=== PATIENT | female | born 1995 | race Caucasian/White ===

== ENCOUNTER 2017-03-24 07:46 | Inpatient (IN) | payer BC, OTHER ==
--- NOTE | 2017-03-24 15:12 | PCM.LDHP ---
L&D History of Present Illness - General Date of Service: 03/24/17 Admit Problem/Dx: Admission Diagnosis/Problem Admission Diagnosis/Problem Source of Information: Patient History Limitations: Reports: No Limitations - History of Present Illness Introduction:: 21 y/o KATEY 04/03/2017 EGDonte 38w4d presented to clinic with c/o contractions , some RUQ pain and feeling dizzy. BP elevated in clinic without proteinuria on UA. BP's 134/98, 133/114, 151/103. GBS negative. O negative, Antibody negative on 08/19/16. H/H 13.1/36.9, Pap negative 01/02/16. Rubella immune. RPR NR, urine culture mixed jacqueline, HBsAg Neg, HIV neg,Chlamydia positive and treated and GC probe negative. Test of cure GC/CT negative 09/18/16TSH WNL. On 01/08/17 H/H 11.9/ 34.2 and platelets [id number]. OBGS 113. GBS negative. Cervix 4-5 cm, 90%, soft, midposition, vertex-1 station. PIH labs ordered to be collected in [facility] in [place] Timing/Duration: Reports: hour(s): Location, : Reports: Abdomen, Lower back Quality: Reports: Dull, Pressure Improves with: Reports: None Worsens with: Reports: None Associated Symptoms: Reports: N Past Medical History : 1 Para: 0 (0000) LMP (Approximate): Psychiatric History: Reports: Anxiety (H/O), Depression (H/O) Social & Family History - Tobacco Use Tobacco Use Within Last Twelve Months: No Used Tobacco, but Quit: No Smoking Cessation Information Provided To Patient: No Second Hand Smoke Exposure: No Second Hand Smoke Education Provided: No - Tobacco Core Measures Tobacco Use/Smoking Within Last 30 Days: No Smokeless Tobacco Use in Last 30 Days: No Smokeless Tobacco Use History: None - Alcohol Use Alcohol Use History: Yes Alcohol Use in Last Twelve Months: Yes Alcohol Use Comment: none during - Recreational Drug Use Recreational Drug Use: No Drug Use in Last 12 Months: No H&P Review of Systems - Review of Systems: Review Of Systems: See Below General: Reports: No Symptoms HEENT: Reports: No Symptoms Pulmonary: Reports: No Symptoms Cardiovascular: Reports: No Symptoms 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: Reports: No Symptoms Genitourinary: Reports: No Symptoms Musculoskeletal: Reports: No Symptoms Skin: Reports: No Symptoms Psychiatric: Reports: No Symptoms Neurological: Reports: No Symptoms Hematologic/Lymphatic: Reports: No Symptoms Immunologic: Reports: No Symptoms L&D Exam - Exam Exam: See Below - OB Specific Fundal Height In cm: 38 Contraction Duration (sec): 60 Contraction Frequency (min): 5 Contraction Intensity: Mild to Moderate Movement: Active Heart Tones: Present Heart Tones per Min: 137 Heart Rate (FHR) Variability: Moderate (6-25 bmp) Presentation: Vertex - Carter Score Carter Score Cervix Position: Midposition Carter Score Consistency: Soft Carter Score Effacement: >80% Carter Score Dilation: > 5 cm Carter Score 's Station: -1 ,0 Carter Score Total: 11 - Exam General: Alert, Oriented HEENT: Conjunctiva Clear, Mucosa Moist & Baggs, Nares Patent, TMs Clear, PERRLA Neck: Supple, Trachea Midline Lungs: Clear to Auscultation, Normal Respiratory Effort Cardiovascular: Regular Rate, Regular Rhythm GI/Abdominal Exam: Normal Bowel Sounds, Soft, Non-Tender, No Organomegaly, No Distention, No Abnormal Bruit, No Mass, Pelvis Stable Rectal Exam: Normal Exam Genitourinary: Normal external exam, Normal bimanual exam, Normal speculum exam Extremities: Normal Inspection, Normal Range of Motion, Non-Tender, No Pedal Edema, Normal Capillary Refill Skin: Warm, Dry, Intact Neurological: Reflexes Equal Bilateral DTR: 2+: Patella (L) (no clonus), Patella (R) (no clonus) Psychiatric: Alert, Normal Affect, Normal Mood - Patient Data Lab Results Last 24 hrs: Laboratory Results - last 24 hr 03/24/17 Range/Units 14:07 Urine Color Yellow (Yellow) Urine Appearance Clear (Clear) Urine pH 6.0 (5.0-8.0) Ur Specific [place] 1.010 (1.005-1.030) Urine Protein Negative (Negative) Urine Glucose (UA) Negative (Negative) Urine Ketones Negative (Negative) Urine Occult Blood Negative (Negative) Urine Nitrite Negative (Negative) Urine Bilirubin Negative (Negative) Urine Urobilinogen 0.2 (0.2-1.0) Ur Leukocyte Esterase 1+ H (Negative) - Problem List (1) 38 weeks gestation of SNOMED Code(s): 14565562 ICD Code: Z3A.38 - 38 WEEKS GESTATION OF Status: Acute Current Visit: Yes (2) Gestational hypertension without significant proteinuria in third trimester SNOMED Code(s): 100379341 ICD Code: O13.3 - GESTATIONAL HTN W/O SIGNIFICANT PROTEINURIA, THIRD TRIMESTER Status: Acute Current Visit: Yes Problem List Initiated/Reviewed/Updated: No Assessment/Plan Comment:: Labor and delivery
[2017-03-24] MEDS ORDERED: Sodium Chloride 0.9% 10 ML Syringe FLUSH PRN (15:26)
[2017-03-24] MEDS ORDERED: Lactated Ringers 1,000 ML IV SCH (15:30)
[2017-03-24] MEDS ORDERED: ePHEDrine 50 MG/ML SDV IVPUSH PRN (16:36)
[2017-03-24] MEDS ORDERED: diphenhydrAMINE 50 MG/ML SDV IVPUSH PRN (16:36)
[2017-03-24] MEDS ORDERED: fentaNYL 100 MCG/2 ML SDV EPIDUR PRN (16:36)
--- NOTE | 2017-03-24 16:44 | PCM.SN ---
- Free Text/Narrative Note: Cervix 5, 100%, anterior, soft, Vertex0/-1 amniotomy performed 1639 clear fluid. Cat I FHR.
[2017-03-24] MEDS ORDERED: Bupivacaine/fentaNYL/NS 100 ML Bag EPIDUR SCH (16:45)
[2017-03-24] MEDS: Lactated Ringers 1,000 ML IV SCH ×2 (17:15→17:49)
[2017-03-24] MEDS ORDERED: Oxytocin/Lactated Ringers 10 UNIT/1,000 ML BAG IV SCH (17:45)
--- NOTE | 2017-03-24 18:26 | PCM.PREANE ---
Preanesthetic Assessment - Anesthesia/Transfusion/Family Hx Anesthesia History: No Prior Anesthesia Family History of Anesthesia Reaction: No Transfusion History: No Prior Transfusion(s) - Review of Systems General: No Symptoms Pulmonary: No Symptoms Cardiovascular: No Symptoms 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: No Symptoms Neurological: No Symptoms Other: Reports: None - Physical Assessment Pulse: 81 O2 Sat by Pulse Oximetry: 97 Respiratory Rate: 16 Blood Pressure: 137/92 Temperature: 36.6 C Vital Signs: Last Vital Signs Temp 36.6 C 03/24/17 15:31 Pulse 81 03/24/17 15:31 Resp 16 03/24/17 15:31 BP 137/93 H 03/24/17 15:31 Pulse Ox Height: 1.68 m Weight: 75.523 kg ASA Class: 2 Mental Status: Alert & Oriented x3 Airway Class: Mallampati = 1 Dentition: Reports: Normal Dentition Thyro-Mental Finger Breadths: 3 Mouth Opening Finger Breadths: 3 ROM/Head Extension: Full Lungs: Clear to Auscultation, Normal Respiratory Effort Cardiovascular: Regular Rate, Regular Rhythm, No Murmurs - Lab Values: Laboratory Last Values WBC 6.24 K/mm3 (3.98-10.04) 03/24/17 16:15 RBC 3.98 M/mm3 (3.98-5.22) 03/24/17 16:15 Hgb 13.3 gm/L (11.2-15.7) 03/24/17 16:15 Hct 37.5 % (34.1-44.9) 03/24/17 16:15 MCV 94.2 fl (79.4-94.8) 03/24/17 16:15 MCH 33.4 pg (25.6-32.2) H 03/24/17 16:15 MCHC 35.5 g/dl (32.2-35.5) 03/24/17 16:15 RDW Std Deviation 41.8 fL (36.4-46.3) 03/24/17 16:15 Plt Count 219 K/mm3 (182-369) 03/24/17 16:15 MPV 12.2 fl (9.4-12.3) 03/24/17 16:15 Neut % (Auto) 67.9 % (34.0-71.1) 03/24/17 16:15 Lymph % (Auto) 22.0 % (19.3-51.7) 03/24/17 16:15 [place] % (Auto) 9.1 % (4.7-12.5) 03/24/17 16:15 Eos % (Auto) 0.5 (0.7-5.8) L 03/24/17 16:15 Baso % (Auto) 0.2 % (0.1-1.2) 03/24/17 16:15 Neut # (Auto) 4.24 K/mm3 (1.56-6.13) 03/24/17 16:15 Lymph # (Auto) 1.37 K/mm3 (1.18-3.74) 03/24/17 16:15 [place] # (Auto) 0.57 K/mm3 (0.24-0.36) H 03/24/17 16:15 Eos # (Auto) 0.03 K/mm3 (0.04-0.36) L 03/24/17 16:15 Baso # (Auto) 0.01 K/mm3 (0.01-0.08) 03/24/17 16:15 PT 9.2 SECONDS (8.0-13.0) 03/24/17 16:15 INR 0.85 03/24/17 16:15 APTT 34 SECONDS (22-36) 03/24/17 16:15 Fibrinogen 478.1 mg/dL (200-400) H 03/24/17 16:15 Sodium 138 mEq/L (136-145) 03/24/17 16:15 Potassium 3.5 mEq/L (3.5-5.1) 03/24/17 16:15 Chloride 104 mEq/L (98-107) 03/24/17 16:15 Carbon Dioxide 19 mEq/L (21-32) L 03/24/17 16:15 Anion Gap 18.5 (5-15) H 03/24/17 16:15 BUN 10 mg/dL (7-18) 03/24/17 16:15 Creatinine 0.8 mg/dL (0.55-1.02) 03/24/17 16:15 Est Cr Clr Drug Dosing 105.01 mL/min 03/24/17 16:15 Estimated GFR (MDRD) > 60 mL/min (>60) 03/24/17 16:15 BUN/Creatinine Ratio 12.5 (14-18) L 03/24/17 16:15 Glucose 98 mg/dL (74-106) 03/24/17 16:15 Uric Acid 8.1 mg/dL (2.6-6.0) H 03/24/17 16:15 Calcium 9.5 mg/dL (8.5-10.1) 03/24/17 16:15 Total Bilirubin 0.2 mg/dL (0.2-1.0) 03/24/17 16:15 AST 41 U/L (15-37) H 03/24/17 16:15 ALT 27 U/L (14-59) 03/24/17 16:15 Alkaline Phosphatase 159 U/L (46-116) H 03/24/17 16:15 Total Protein 7.0 g/dl (6.4-8.2) 03/24/17 16:15 Albumin 2.6 g/dl (3.4-5.0) L 03/24/17 16:15 Globulin 4.4 gm/dL 03/24/17 16:15 Albumin/Globulin Ratio 0.6 (1-2) L 03/24/17 16:15 Urine Color Yellow (Yellow) 03/24/17 14:07 Urine Appearance Clear (Clear) 03/24/17 14:07 Urine pH 6.0 (5.0-8.0) 03/24/17 14:07 Ur Specific [place] 1.010 (1.005-1.030) 03/24/17 14:07 Urine Protein Negative (Negative) 03/24/17 14:07 Urine Glucose (UA) Negative (Negative) 03/24/17 14:07 Urine Ketones Negative (Negative) 03/24/17 14:07 Urine Occult Blood Negative (Negative) 03/24/17 14:07 Urine Nitrite Negative (Negative) 03/24/17 14:07 Urine Bilirubin Negative (Negative) 03/24/17 14:07 Urine Urobilinogen 0.2 (0.2-1.0) 03/24/17 14:07 Ur Leukocyte Esterase 1+ (Negative) H 03/24/17 14:07 Blood Type O NEGATIVE 03/24/17 16:15 Gel Antibody Screen Negative 03/24/17 16:15 - Allergies Allergies/Adverse Reactions: Allergies Allergy/AdvReac Type Severity Reaction Status Date / Time No Known Allergies Allergy Verified 03/24/17 15:25 - Anesthesia Plan Pre-Op Medication Ordered: None - Acknowledgements Anesthesia Type Planned: Epidural Pt an Appropriate Candidate for the Planned Anesthesia: Yes Alternatives and Risks of Anesthesia Discussed w Pt/Guardian: Yes Pt/Guardian Understands and Agrees with Anesthesia Plan: Yes PreAnesthesia Questionnaire - Past Health History Medical/Surgical History: Denies Medical/Surgical History 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 History: Reports: 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: Psychiatric History: Reports: Anxiety, Depression - SUBSTANCE USE Smoking Status *Q: Never Smoker Tobacco Use Within Last Twelve Months: No Second Hand Smoke Exposure: No Recreational Drug Use History: No - CURRENT (IN HOUSE) MEDS Current Meds: Current Medications Diphenhydramine HCl (Benadryl) 25 mg IVPUSH Q6H PRN PRN Reason: Itching Ephedrine Sulfate (Ephedrine Sulfate) 5 mg IVPUSH ASDIRECTED PRN PRN Reason: HYPOTENTSION Fentanyl (Sublimaze) 100 mcg EPIDUR Q3H PRN PRN Reason: PAIN Last Admin: 03/24/17 18:13 Dose: 100 mcg Fentanyl/Bupivacaine HCl (Fentanyl/Bupivacaine/Ns 2 Mcg-0.125% 100 Ml) 100 ml EPIDUR ASDIRECTED PAMELA Last Admin: 03/24/17 18:14 Dose: 100 ml Lactated Ringer's (Ringers, Lactated) 1,000 mls @ 100 mls/hr IV ASDIRECTED PAMELA Last Admin: 03/24/17 17:49 Dose: 999 mls/hr Lactated Ringer's (Ringers, Lactated) 1,000 mls @ 40 mls/hr IV ASDIRECTED PAMELA Oxytocin/Lactated Ringer's (Pitocin In Lr 10 Units/1,000 Ml) 10 unit in 1,000 mls @ 3,000 mls/hr IV TITRATE PAMELA; 500 MUNITS/MIN PRN Reason: Protocol Sodium Chloride (Saline Flush) 10 ml FLUSH ASDIRECTED PRN PRN Reason: Keep Vein Open
--- NOTE | 2017-03-24 20:54 | PCM.DEL ---
L & D Note - General Info Date of Service: 03/24/17 Mother's Due Date: 04/03/17 - Delivery Note Labor: Spontaneous, Augmented by ARM Delivery Outcome: Livebirth (Male liveborn 2029 hrs Friday03/24/17 3850 g/7#4.3 oz APGARs 8/9 JUAN CARLOS Nuchal cored x2 tight) Infant Delivery Method: Spontaneous Vaginal Delivery-Single Infant Delivery Mode: Spontaneous Presentation: Left Occiput Anterior (JUAN CARLOS) Nuchal Cord: Present (2 tight cord cut and then delivery accomplished immediately after cutting cord. (Less than 5 seconds)) Anesthesia Type: None Episiotomy Type: None Laceration: 1st Degree (Midline sutured with 3-0 Monocryl times one) Suture type: Other Suture size: 3-0 Placenta: Intact, Spontaneous (Spontaneous delivery at 2 hrs. on Friday [place], central cord insertion. Examined and tacked discarded) Cord: 3 Vessels Estimated Blood Loss: 250 Resuscitation Needed: No [place]: Suctioned, Bulb Syringe, Stimulated, Warmed, [place] Used, Warmer Used Provider: Ilir Rodrigues Score 1 min: 8 Score 5 min: 9 - Patient Data Vitals - Most Recent: Last Vital Signs Temp 97.9 F 03/24/17 18:26 Pulse 81 03/24/17 18:26 Resp 16 03/24/17 18:26 BP 137/92 H 03/24/17 18:26 Pulse Ox 97 03/24/17 18:26 Weight - Most Recent: 166 lb 8 oz Lab Results Last 24 Hours: Laboratory Results - last 24 hr 03/24/17 03/24/17 03/24/17 Range/Units 14:07 16:15 16:15 WBC 6.24 (3.98-10.04) K/mm3 RBC 3.98 (3.98-5.22) M/mm3 Hgb 13.3 (11.2-15.7) gm/L Hct 37.5 (34.1-44.9) % MCV 94.2 (79.4-94.8) fl MCH 33.4 H (25.6-32.2) pg MCHC 35.5 (32.2-35.5) g/dl RDW Std Deviation 41.8 (36.4-46.3) fL Plt Count 219 (182-369) K/mm3 MPV 12.2 (9.4-12.3) fl Neut % (Auto) 67.9 (34.0-71.1) % Lymph % (Auto) 22.0 (19.3-51.7) % [place] % (Auto) 9.1 (4.7-12.5) % Eos % (Auto) 0.5 L (0.7-5.8) Baso % (Auto) 0.2 (0.1-1.2) % Neut # (Auto) 4.24 (1.56-6.13) K/mm3 Lymph # (Auto) 1.37 (1.18-3.74) K/mm3 [place] # (Auto) 0.57 H (0.24-0.36) K/mm3 Eos # (Auto) 0.03 L (0.04-0.36) K/mm3 Baso # (Auto) 0.01 (0.01-0.08) K/mm3 PT (8.0-13.0) SECONDS INR APTT (22-36) SECONDS Fibrinogen 478.1 H (200-400) mg/dL Fibrin Degrad Products (<5) ug/mL Sodium (136-145) mEq/L Potassium (3.5-5.1) mEq/L Chloride (98-107) mEq/L Carbon Dioxide (21-32) mEq/L Anion Gap (5-15) BUN (7-18) mg/dL Creatinine (0.55-1.02) mg/dL Est Cr Clr Drug Dosing mL/min Estimated GFR (MDRD) (>60) mL/min BUN/Creatinine Ratio (14-18) Glucose (74-106) mg/dL Uric Acid (2.6-6.0) mg/dL Calcium (8.5-10.1) mg/dL Total Bilirubin (0.2-1.0) mg/dL AST (15-37) U/L ALT (14-59) U/L Alkaline Phosphatase (46-116) U/L Total Protein (6.4-8.2) g/dl Albumin (3.4-5.0) g/dl Globulin gm/dL Albumin/Globulin Ratio (1-2) Urine Color Yellow (Yellow) Urine Appearance Clear (Clear) Urine pH 6.0 (5.0-8.0) Ur Specific [place] 1.010 (1.005-1.030) Urine Protein Negative (Negative) Urine Glucose (UA) Negative (Negative) Urine Ketones Negative (Negative) Urine Occult Blood Negative (Negative) Urine Nitrite Negative (Negative) Urine Bilirubin Negative (Negative) Urine Urobilinogen 0.2 (0.2-1.0) Ur Leukocyte Esterase 1+ H (Negative) Blood Type Gel Antibody Screen 03/24/17 03/24/17 03/24/17 Range/Units 16:15 16:15 16:15 WBC (3.98-10.04) K/mm3 RBC (3.98-5.22) M/mm3 Hgb (11.2-15.7) gm/L Hct (34.1-44.9) % MCV (79.4-94.8) fl MCH (25.6-32.2) pg MCHC (32.2-35.5) g/dl RDW Std Deviation (36.4-46.3) fL Plt Count (182-369) K/mm3 MPV (9.4-12.3) fl Neut % (Auto) (34.0-71.1) % Lymph % (Auto) (19.3-51.7) % [place] % (Auto) (4.7-12.5) % Eos % (Auto) (0.7-5.8) Baso % (Auto) (0.1-1.2) % Neut # (Auto) (1.56-6.13) K/mm3 Lymph # (Auto) (1.18-3.74) K/mm3 [place] # (Auto) (0.24-0.36) K/mm3 Eos # (Auto) (0.04-0.36) K/mm3 Baso # (Auto) (0.01-0.08) K/mm3 PT 9.2 (8.0-13.0) SECONDS INR 0.85 APTT 34 (22-36) SECONDS Fibrinogen (200-400) mg/dL Fibrin Degrad Products > 5 but < 20 ug/ml H (<5) ug/mL Sodium 138 (136-145) mEq/L Potassium 3.5 (3.5-5.1) mEq/L Chloride 104 (98-107) mEq/L Carbon Dioxide 19 L (21-32) mEq/L Anion Gap 18.5 H (5-15) BUN 10 (7-18) mg/dL Creatinine 0.8 (0.55-1.02) mg/dL Est Cr Clr Drug Dosing 105.01 mL/min Estimated GFR (MDRD) > 60 (>60) mL/min BUN/Creatinine Ratio 12.5 L (14-18) Glucose 98 (74-106) mg/dL Uric Acid 8.1 H (2.6-6.0) mg/dL Calcium 9.5 (8.5-10.1) mg/dL Total Bilirubin 0.2 (0.2-1.0) mg/dL AST 41 H (15-37) U/L ALT 27 (14-59) U/L Alkaline Phosphatase 159 H (46-116) U/L Total Protein 7.0 (6.4-8.2) g/dl Albumin 2.6 L (3.4-5.0) g/dl Globulin 4.4 gm/dL Albumin/Globulin Ratio 0.6 L (1-2) Urine Color (Yellow) Urine Appearance (Clear) Urine pH (5.0-8.0) Ur Specific [place] (1.005-1.030) Urine Protein (Negative) Urine Glucose (UA) (Negative) Urine Ketones (Negative) Urine Occult Blood (Negative) Urine Nitrite (Negative) Urine Bilirubin (Negative) Urine Urobilinogen (0.2-1.0) Ur Leukocyte Esterase (Negative) Blood Type O NEGATIVE Gel Antibody Screen Negative Med Orders - Current: Current Medications Diphenhydramine HCl (Benadryl) 25 mg IVPUSH Q6H PRN PRN Reason: Itching Ephedrine Sulfate (Ephedrine Sulfate) 5 mg IVPUSH ASDIRECTED PRN PRN Reason: HYPOTENTSION Fentanyl (Sublimaze) 100 mcg EPIDUR Q3H PRN PRN Reason: PAIN Last Admin: 03/24/17 18:13 Dose: 100 mcg Fentanyl/Bupivacaine HCl (Fentanyl/Bupivacaine/Ns 2 Mcg-0.125% 100 Ml) 100 ml EPIDUR ASDIRECTED [facility] Last Admin: 03/24/17 18:14 Dose: 100 ml Lactated Ringer's (Ringers, Lactated) 1,000 mls @ 100 mls/hr IV ASDIRECTED [facility] Last Admin: 03/24/17 17:49 Dose: 999 mls/hr Lactated Ringer's (Ringers, Lactated) 1,000 mls @ 40 mls/hr IV ASDIRECTED PAMELA Oxytocin/Lactated Ringer's (Pitocin In Lr 10 Units/1,000 Ml) 10 unit in 1,000 mls @ 3,000 mls/hr IV TITRATE PAMELA; 500 MUNITS/MIN PRN Reason: Protocol Sodium Chloride (Saline Flush) 10 ml FLUSH ASDIRECTED PRN PRN Reason: Keep Vein Open - Problem List & Annotations (1) 38 weeks gestation of SNOMED Code(s): 57938492 Code(s): Z3A.38 - 38 WEEKS GESTATION OF Status: Acute Current Visit: Yes (2) Gestational hypertension without significant proteinuria in third trimester SNOMED Code(s): 689303277 Code(s): O13.3 - GESTATIONAL HTN W/O SIGNIFICANT PROTEINURIA, THIRD TRIMESTER Status: Acute Current Visit: Yes (3) Double nuchal cord SNOMED Code(s): 407310326 Code(s): O69.1XX0 - LABOR AND DELIVERY COMP BY CORD AROUND NECK, W COMPRSN, UNSP Status: Acute Current Visit: Yes (4) First degree laceration of perineum during delivery, SNOMED Code(s): 107665671 Code(s): O70.0 - FIRST DEGREE PERINEAL LACERATION DURING DELIVERY Status: Acute Current Visit: Yes - Problem List Review Problem List Initiated/Reviewed/Updated: No - My Orders Last 24 Hours: My Active Orders 03/24/17 15:26 Sodium Chloride 0.9% [Saline Flush] 10 ml FLUSH ASDIRECTED PRN Resuscitation Status Routine 03/24/17 15:30 Lactated Ringers [Ringers, Lactated] 1,000 ml IV ASDIRECTED Lactated Ringers [Ringers, Lactated] 1,000 ml IV ASDIRECTED 03/24/17 15:31 Activity as Tolerated [RC] PFP Communication Order [RC] ASDIRECTED Communication Order [RC] ASDIRECTED Communication Order [RC] ASDIRECTED Communication Order [RC] ASDIRECTED Heart Tones [RC] ASDIRECTED Monitoring [RC] INTERMITTENT Notify Provider [RC] ASDIRECTED Notify Provider [RC] PFP Notify Provider [RC] PRN Peripheral IV Care [RC] . DIRECTED Vaginal Exam [RC] ASDIRECTED Vital Signs [RC] PER UNIT ROUTINE Electronic Heart Tones Ext w TOCO [WOMSER] Routine Electronic Heart Tones Internal [WOMSER] Per Unit Routine Peripheral IV Insertion Adult [OM.PC] Routine Peripheral IV Insertion Adult [OM.PC] Routine 03/24/17 15:35 Patient Status [ADT] Routine 03/24/17 17:45 Oxytocin/Lactated Ringers [Pitocin in LR 10 Units/1,000 ML] 10 unit in 1,000 ml IV TITRATE - Plan Plan:: Labor and delivery
[2017-03-24] MEDS ORDERED: Lanolin 100% Cream 7 GM Tube TOP PRN (21:04)
[2017-03-24] MEDS ORDERED: Acetaminophen 325 MG Tab PO PRN (21:04)
[2017-03-24] MEDS ORDERED: Benzocaine/Menthol 20%-0.5% Spray 56 GM Canister TOP PRN (21:04)
[2017-03-24] MEDS ORDERED: Bisacodyl 10 MG Supp RECTAL PRN (21:04)
[2017-03-24] MEDS ORDERED: Witch Hazel Medicated Pads 100/Jar TOP PRN (21:04)
[2017-03-24] MEDS ORDERED: Bupivacaine 0.25% 10 ML SDV ONE (22:22)
[2017-03-24] MEDS: Ibuprofen 600 MG Tab PO PRN (23:27)
[2017-03-25] MEDS: Ibuprofen 600 MG Tab PO PRN (05:15)
--- NOTE | 2017-03-25 08:46 | PCM48HPAN ---
Post Anesthesia Note - EVALUATION WITHIN 48HRS OF ANESTHETIC Vital Signs in Normal Range: Yes Patient Participated in Evaluation: Yes Respiratory Function Stable: Yes Airway Patent: Yes Cardiovascular Function Stable: Yes Hydration Status Stable: Yes Pain Control Satisfactory: Yes Nausea and Vomiting Control Satisfactory: Yes Mental Status Recovered: Yes
--- NOTE | 2017-03-25 10:41 | PCM.OPNOTE ---
- General Post-Op/Procedure Note Date of Surgery/Procedure: 03/25/17 Operative Procedure(s): Anterior colporrhaphy [id number] Pre Op Diagnosis: Midline cystocele, stress urinary incontinence Post-Op Diagnosis: Same Anesthesia Technique: General ET Tube Primary Surgeon: Ilir Rodrigues Secondary Surgeon: Flaquito Dooley Anesthesia Provider: Joy Ga Broadcast Technician: Slick Reaves (PAS) Reason Broadcast Technician Was Necessary: Decrease comorbidity and co-mortality provide retraction. Role of Broadcast Technician: Provide retraction decrease comorbidity and co-mortality Fluid Replacement, Intraop: 1,000 Output, Urine Amount: 275 EBL in mLs: 10 Drain/Tube Comments:: None Complications: None Condition: Good Free Text/Narrative:: Intake & Output 03/24/17 03/25/17 03/25/17 22:59 06:59 14:59 Intake Total 3000 Balance 3000
--- NOTE | 2017-03-25 11:09 | PCM.SN ---
- Free Text/Narrative Note: day 1 Afebrile, breast-feeding, no heavy vaginal bleeding. Uterus involuting normally. No leg cramping. Probably home tomorrow.
[2017-03-25] MEDS ORDERED: WELLBUTRIN 150 MG PO SCH (21:00)
[2017-03-26] MEDS: Ibuprofen 600 MG Tab PO PRN (03:00)
--- NOTE | 2017-03-26 08:50 | PCM.DCSUM1 ---
Discharge Summary - Hospital Course Free Text/Narrative:: [facility] LIVE L/D Delivery Note Patient Name: STACIA VILLA Date of : 89 Patient Status: Inpatient Attending Provider: Ilir Rodrigues Date: 03/24/17 20:48 Initialization Date: 03/24/17 20:48 L & D Note - General Info Date of Service: 03/24/17 Mother's Due Date: 04/03/17 - Delivery Note Labor: Spontaneous, Augmented by ARM Delivery Outcome: Livebirth (Male liveborn 2030 hrs Friday03/24/17 3850 g/7#4.3 oz APGARs 8/9 JUAN CARLOS Nuchal cored x2 tight) Infant Delivery Method: Spontaneous Vaginal Delivery-Single Infant Delivery Mode: Spontaneous Presentation: Left Occiput Anterior (JUAN CARLOS) Nuchal Cord: Present (2 tight cord cut and then delivery accomplished immediately after cutting cord. (Less than 5 seconds)) Anesthesia Type: None Episiotomy Type: None Laceration: 1st Degree (Midline sutured with 3-0 Monocryl times one) Suture type: Other Suture size: 3-0 Placenta: Intact, Spontaneous (Spontaneous delivery at 2032 hrs. on Friday Mccallum, central cord insertion. Examined and tacked discarded) Cord: 3 Vessels Estimated Blood Loss: 250 Resuscitation Needed: No [place]: Suctioned, Bulb Syringe, Stimulated, Warmed, [place] Used, Warmer Used Provider: Ilir Rodrigues Score 1 min: 8 Score 5 min: 9 - Patient Data Vitals - Most Recent: Last Vital Signs Temp 97.9 F 03/24/17 18:26 Pulse 81 03/24/17 18:26 Resp 16 03/24/17 18:26 BP 137/92 H 03/24/17 18:26 Pulse Ox 97 03/24/17 18:26 Weight - Most Recent: 166 lb 8 oz Lab Results Last 24 Hours: Laboratory Results - last 24 hr 03/24/17 03/24/17 03/24/17 Range/Units 14:07 16:15 16:15 WBC 6.24 (3.98-10.04) K/mm3 RBC 3.98 (3.98-5.22) M/mm3 Hgb 13.3 (11.2-15.7) gm/L Hct 37.5 (34.1-44.9) % MCV 94.2 (79.4-94.8) fl MCH 33.4 H (25.6-32.2) pg MCHC 35.5 (32.2-35.5) g/dl RDW Std Deviation 41.8 (36.4-46.3) fL Plt Count 219 (182-369) K/mm3 MPV 12.2 (9.4-12.3) fl Neut % (Auto) 67.9 (34.0-71.1) % Lymph % (Auto) 22.0 (19.3-51.7) % [place] % (Auto) 9.1 (4.7-12.5) % Eos % (Auto) 0.5 L (0.7-5.8) Baso % (Auto) 0.2 (0.1-1.2) % Neut # (Auto) 4.24 (1.56-6.13) K/mm3 Lymph # (Auto) 1.37 (1.18-3.74) K/mm3 [place] # (Auto) 0.57 H (0.24-0.36) K/mm3 Eos # (Auto) 0.03 L (0.04-0.36) K/mm3 Baso # (Auto) 0.01 (0.01-0.08) K/mm3 PT (8.0-13.0) SECONDS INR APTT (22-36) SECONDS Fibrinogen 478.1 H (200-400) mg/dL Fibrin Degrad Products (<5) ug/mL Sodium (136-145) mEq/L Potassium (3.5-5.1) mEq/L Chloride (98-107) mEq/L Carbon Dioxide (21-32) mEq/L Anion Gap (5-15) BUN (7-18) mg/dL Creatinine (0.55-1.02) mg/dL Est Cr Clr Drug Dosing mL/min Estimated GFR (MDRD) (>60) mL/min BUN/Creatinine Ratio (14-18) Glucose (74-106) mg/dL Uric Acid (2.6-6.0) mg/dL Calcium (8.5-10.1) mg/dL Total Bilirubin (0.2-1.0) mg/dL AST (15-37) U/L ALT (14-59) U/L Alkaline Phosphatase (46-116) U/L Total Protein (6.4-8.2) g/dl Albumin (3.4-5.0) g/dl Globulin gm/dL Albumin/Globulin Ratio (1-2) Urine Color Yellow (Yellow) Urine Appearance Clear (Clear) Urine pH 6.0 (5.0-8.0) Ur Specific [place] 1.010 (1.005-1.030) Urine Protein Negative (Negative) Urine Glucose (UA) Negative (Negative) Urine Ketones Negative (Negative) Urine Occult Blood Negative (Negative) Urine Nitrite Negative (Negative) Urine Bilirubin Negative (Negative) Urine Urobilinogen 0.2 (0.2-1.0) Ur Leukocyte Esterase 1+ H (Negative) Blood Type Gel Antibody Screen 03/24/17 03/24/17 03/24/17 Range/Units 16:15 16:15 16:15 WBC (3.98-10.04) K/mm3 RBC (3.98-5.22) M/mm3 Hgb (11.2-15.7) gm/L Hct (34.1-44.9) % MCV (79.4-94.8) fl MCH (25.6-32.2) pg MCHC (32.2-35.5) g/dl RDW Std Deviation (36.4-46.3) fL Plt Count (182-369) K/mm3 MPV (9.4-12.3) fl Neut % (Auto) (34.0-71.1) % Lymph % (Auto) (19.3-51.7) % [place] % (Auto) (4.7-12.5) % Eos % (Auto) (0.7-5.8) Baso % (Auto) (0.1-1.2) % Neut # (Auto) (1.56-6.13) K/mm3 Lymph # (Auto) (1.18-3.74) K/mm3 [place] # (Auto) (0.24-0.36) K/mm3 Eos # (Auto) (0.04-0.36) K/mm3 Baso # (Auto) (0.01-0.08) K/mm3 PT 9.2 (8.0-13.0) SECONDS INR 0.85 APTT 34 (22-36) SECONDS Fibrinogen (200-400) mg/dL Fibrin Degrad Products > 5 but < 20 ug/ml H (<5) ug/mL Sodium 138 (136-145) mEq/L Potassium 3.5 (3.5-5.1) mEq/L Chloride 104 (98-107) mEq/L Carbon Dioxide 19 L (21-32) mEq/L Anion Gap 18.5 H (5-15) BUN 10 (7-18) mg/dL Creatinine 0.8 (0.55-1.02) mg/dL Est Cr Clr Drug Dosing 105.01 mL/min Estimated GFR (MDRD) > 60 (>60) mL/min BUN/Creatinine Ratio 12.5 L (14-18) Glucose 98 (74-106) mg/dL Uric Acid 8.1 H (2.6-6.0) mg/dL Calcium 9.5 (8.5-10.1) mg/dL Total Bilirubin 0.2 (0.2-1.0) mg/dL AST 41 H (15-37) U/L ALT 27 (14-59) U/L Alkaline Phosphatase 159 H (46-116) U/L Total Protein 7.0 (6.4-8.2) g/dl Albumin 2.6 L (3.4-5.0) g/dl Globulin 4.4 gm/dL Albumin/Globulin Ratio 0.6 L (1-2) Urine Color (Yellow) Urine Appearance (Clear) Urine pH (5.0-8.0) Ur Specific [place] (1.005-1.030) Urine Protein (Negative) Urine Glucose (UA) (Negative) Urine Ketones (Negative) Urine Occult Blood (Negative) Urine Nitrite (Negative) Urine Bilirubin (Negative) Urine Urobilinogen (0.2-1.0) Ur Leukocyte Esterase (Negative) Blood Type O NEGATIVE Gel Antibody Screen Negative Med Orders - Current: Current Medications Diphenhydramine HCl (Benadryl) 25 mg IVPUSH Q6H PRN PRN Reason: Itching Ephedrine Sulfate (Ephedrine Sulfate) 5 mg IVPUSH ASDIRECTED PRN PRN Reason: HYPOTENTSION Fentanyl (Sublimaze) 100 mcg EPIDUR Q3H PRN PRN Reason: PAIN Last Admin: 03/24/17 18:13 Dose: 100 mcg Fentanyl/Bupivacaine HCl (Fentanyl/Bupivacaine/Ns 2 Mcg-0.125% 100 Ml) 100 ml EPIDUR ASDIRECTED PAMELA Last Admin: 03/24/17 18:14 Dose: 100 ml Lactated Ringer's (Ringers, Lactated) 1,000 mls @ 100 mls/hr IV ASDIRECTED PAMELA Last Admin: 03/24/17 17:49 Dose: 999 mls/hr Lactated Ringer's (Ringers, Lactated) 1,000 mls @ 40 mls/hr IV ASDIRECTED PAMELA Oxytocin/Lactated Ringer's (Pitocin In Lr 10 Units/1,000 Ml) 10 unit in 1,000 mls @ 3,000 mls/hr IV TITRATE PAMELA; 500 MUNITS/MIN PRN Reason: Protocol Sodium Chloride (Saline Flush) 10 ml FLUSH ASDIRECTED PRN PRN Reason: Keep Vein Open - Problem List & Annotations (1) 38 weeks gestation of SNOMED Code(s): 08512670 Code(s): Z3A.38 - 38 WEEKS GESTATION OF Status: Acute Current Visit: Yes (2) Gestational hypertension without significant proteinuria in third trimester SNOMED Code(s): 325568376 Code(s): O13.3 - GESTATIONAL HTN W/O SIGNIFICANT PROTEINURIA, THIRD TRIMESTER Status: Acute Current Visit: Yes (3) Double nuchal cord SNOMED Code(s): 868003816 Code(s): O69.1XX0 - LABOR AND DELIVERY COMP BY CORD AROUND NECK, W COMPRSN, UNSP Status: Acute Current Visit: Yes (4) First degree laceration of perineum during delivery, SNOMED Code(s): 903263121 Code(s): O70.0 - FIRST DEGREE PERINEAL LACERATION DURING DELIVERY Status: Acute Current Visit: Yes - Problem List Review Problem List Initiated/Reviewed/Updated: No - My Orders Last 24 Hours: My Active Orders 03/24/17 15:26 Sodium Chloride 0.9% [Saline Flush] 10 ml FLUSH ASDIRECTED PRN Resuscitation Status Routine 03/24/17 15:30 Lactated Ringers [Ringers, Lactated] 1,000 ml IV ASDIRECTED Lactated Ringers [Ringers, Lactated] 1,000 ml IV ASDIRECTED 03/24/17 15:31 Activity as Tolerated [RC] PFP Communication Order [RC] ASDIRECTED Communication Order [RC] ASDIRECTED Communication Order [RC] ASDIRECTED Communication Order [RC] ASDIRECTED Heart Tones [RC] ASDIRECTED Monitoring [RC] INTERMITTENT Notify Provider [RC] ASDIRECTED Notify Provider [RC] PFP Notify Provider [RC] PRN Peripheral IV Care [RC] . DIRECTED Vaginal Exam [RC] ASDIRECTED Vital Signs [RC] PER UNIT ROUTINE Electronic Heart Tones Ext w TOCO [WOMSER] Routine Electronic Heart Tones Internal [WOMSER] Per Unit Routine Peripheral IV Insertion Adult [OM.PC] Routine Peripheral IV Insertion Adult [OM.PC] Routine 03/24/17 15:35 Patient Status [ADT] Routine 03/24/17 17:45 Oxytocin/Lactated Ringers [Pitocin in LR 10 Units/1,000 ML] 10 unit in 1,000 ml IV TITRATE - Plan Plan:: Labor and delivery HPI Initial Comments: [facility] LIVE L/D Delivery Note Patient Name: STACIA VILLA Date of : 89 Patient Status: Inpatient Attending Provider: Ilir Rodrigues Date: 03/24/17 20:48 Initialization Date: 03/24/17 20:48 L & D Note - General Info Date of Service: 03/24/17 Mother's Due Date: 04/03/17 - Delivery Note Labor: Spontaneous, Augmented by ARM Delivery Outcome: Livebirth (Male liveborn 202903/24/17 3850 g/7#4.3 oz APGARs 8/9 JUAN CARLOS Nuchal cored x2 tight) Infant Delivery Method: Spontaneous Vaginal Delivery-Single Infant Delivery Mode: Spontaneous Presentation: Left Occiput Anterior (JUAN CARLOS) Nuchal Cord: Present (2 tight cord cut and then delivery accomplished immediately after cutting cord. (Less than 5 seconds)) Anesthesia Type: None Episiotomy Type: None Laceration: 1st Degree (Midline sutured with 3-0 Monocryl times one) Suture type: Other Suture size: 3-0 Placenta: Intact, Spontaneous (Spontaneous delivery at 2032 hrs. on Friday [place], central cord insertion. Examined and tacked discarded) Cord: 3 Vessels Estimated Blood Loss: 250 Resuscitation Needed: No : Suctioned, Bulb Syringe, Stimulated, Warmed, [place] Used, Warmer Used Provider: Ilir Rodrigues Score 1 min: 8 Score 5 min: 9 - Patient Data Vitals - Most Recent: Last Vital Signs Temp 97.9 F 03/24/17 18:26 Pulse 81 03/24/17 18:26 Resp 16 03/24/17 18:26 BP 137/92 H 03/24/17 18:26 Pulse Ox 97 03/24/17 18:26 Weight - Most Recent: 166 lb 8 oz Lab Results Last 24 Hours: Laboratory Results - last 24 hr 03/24/17 03/24/17 03/24/17 Range/Units 14:07 16:15 16:15 WBC 6.24 (3.98-10.04) K/mm3 RBC 3.98 (3.98-5.22) M/mm3 Hgb 13.3 (11.2-15.7) gm/L Hct 37.5 (34.1-44.9) % MCV 94.2 (79.4-94.8) fl MCH 33.4 H (25.6-32.2) pg MCHC 35.5 (32.2-35.5) g/dl RDW Std Deviation 41.8 (36.4-46.3) fL Plt Count 219 (182-369) K/mm3 MPV 12.2 (9.4-12.3) fl Neut % (Auto) 67.9 (34.0-71.1) % Lymph % (Auto) 22.0 (19.3-51.7) % [place] % (Auto) 9.1 (4.7-12.5) % Eos % (Auto) 0.5 L (0.7-5.8) Baso % (Auto) 0.2 (0.1-1.2) % Neut # (Auto) 4.24 (1.56-6.13) K/mm3 Lymph # (Auto) 1.37 (1.18-3.74) K/mm3 [place] # (Auto) 0.57 H (0.24-0.36) K/mm3 Eos # (Auto) 0.03 L (0.04-0.36) K/mm3 Baso # (Auto) 0.01 (0.01-0.08) K/mm3 PT (8.0-13.0) SECONDS INR APTT (22-36) SECONDS Fibrinogen 478.1 H (200-400) mg/dL Fibrin Degrad Products (<5) ug/mL Sodium (136-145) mEq/L Potassium (3.5-5.1) mEq/L Chloride (98-107) mEq/L Carbon Dioxide (21-32) mEq/L Anion Gap (5-15) BUN (7-18) mg/dL Creatinine (0.55-1.02) mg/dL Est Cr Clr Drug Dosing mL/min Estimated GFR (MDRD) (>60) mL/min BUN/Creatinine Ratio (14-18) Glucose (74-106) mg/dL Uric Acid (2.6-6.0) mg/dL Calcium (8.5-10.1) mg/dL Total Bilirubin (0.2-1.0) mg/dL AST (15-37) U/L ALT (14-59) U/L Alkaline Phosphatase (46-116) U/L Total Protein (6.4-8.2) g/dl Albumin (3.4-5.0) g/dl Globulin gm/dL Albumin/Globulin Ratio (1-2) Urine Color Yellow (Yellow) Urine Appearance Clear (Clear) Urine pH 6.0 (5.0-8.0) Ur Specific [place] 1.010 (1.005-1.030) Urine Protein Negative (Negative) Urine Glucose (UA) Negative (Negative) Urine Ketones Negative (Negative) Urine Occult Blood Negative (Negative) Urine Nitrite Negative (Negative) Urine Bilirubin Negative (Negative) Urine Urobilinogen 0.2 (0.2-1.0) Ur Leukocyte Esterase 1+ H (Negative) Blood Type Gel Antibody Screen 03/24/17 03/24/17 03/24/17 Range/Units 16:15 16:15 16:15 WBC (3.98-10.04) K/mm3 RBC (3.98-5.22) M/mm3 Hgb (11.2-15.7) gm/L Hct (34.1-44.9) % MCV (79.4-94.8) fl MCH (25.6-32.2) pg MCHC (32.2-35.5) g/dl RDW Std Deviation (36.4-46.3) fL Plt Count (182-369) K/mm3 MPV (9.4-12.3) fl Neut % (Auto) (34.0-71.1) % Lymph % (Auto) (19.3-51.7) % [place] % (Auto) (4.7-12.5) % Eos % (Auto) (0.7-5.8) Baso % (Auto) (0.1-1.2) % Neut # (Auto) (1.56-6.13) K/mm3 Lymph # (Auto) (1.18-3.74) K/mm3 [place] # (Auto) (0.24-0.36) K/mm3 Eos # (Auto) (0.04-0.36) K/mm3 Baso # (Auto) (0.01-0.08) K/mm3 PT 9.2 (8.0-13.0) SECONDS INR 0.85 APTT 34 (22-36) SECONDS Fibrinogen (200-400) mg/dL Fibrin Degrad Products > 5 but < 20 ug/ml H (<5) ug/mL Sodium 138 (136-145) mEq/L Potassium 3.5 (3.5-5.1) mEq/L Chloride 104 (98-107) mEq/L Carbon Dioxide 19 L (21-32) mEq/L Anion Gap 18.5 H (5-15) BUN 10 (7-18) mg/dL Creatinine 0.8 (0.55-1.02) mg/dL Est Cr Clr Drug Dosing 105.01 mL/min Estimated GFR (MDRD) > 60 (>60) mL/min BUN/Creatinine Ratio 12.5 L (14-18) Glucose 98 (74-106) mg/dL Uric Acid 8.1 H (2.6-6.0) mg/dL Calcium 9.5 (8.5-10.1) mg/dL Total Bilirubin 0.2 (0.2-1.0) mg/dL AST 41 H (15-37) U/L ALT 27 (14-59) U/L Alkaline Phosphatase 159 H (46-116) U/L Total Protein 7.0 (6.4-8.2) g/dl Albumin 2.6 L (3.4-5.0) g/dl Globulin 4.4 gm/dL Albumin/Globulin Ratio 0.6 L (1-2) Urine Color (Yellow) Urine Appearance (Clear) Urine pH (5.0-8.0) Ur Specific [place] (1.005-1.030) Urine Protein (Negative) Urine Glucose (UA) (Negative) Urine Ketones (Negative) Urine Occult Blood (Negative) Urine Nitrite (Negative) Urine Bilirubin (Negative) Urine Urobilinogen (0.2-1.0) Ur Leukocyte Esterase (Negative) Blood Type O NEGATIVE Gel Antibody Screen Negative Med Orders - Current: Current Medications Diphenhydramine HCl (Benadryl) 25 mg IVPUSH Q6H PRN PRN Reason: Itching Ephedrine Sulfate (Ephedrine Sulfate) 5 mg IVPUSH ASDIRECTED PRN PRN Reason: HYPOTENTSION Fentanyl (Sublimaze) 100 mcg EPIDUR Q3H PRN PRN Reason: PAIN Last Admin: 03/24/17 18:13 Dose: 100 mcg Fentanyl/Bupivacaine HCl (Fentanyl/Bupivacaine/Ns 2 Mcg-0.125% 100 Ml) 100 ml EPIDUR ASDIRECTED PAMELA Last Admin: 03/24/17 18:14 Dose: 100 ml Lactated Ringer's (Ringers, Lactated) 1,000 mls @ 100 mls/hr IV ASDIRECTED PAMELA Last Admin: 03/24/17 17:49 Dose: 999 mls/hr Lactated Ringer's (Ringers, Lactated) 1,000 mls @ 40 mls/hr IV ASDIRECTED PAMELA Oxytocin/Lactated Ringer's (Pitocin In Lr 10 Units/1,000 Ml) 10 unit in 1,000 mls @ 3,000 mls/hr IV TITRATE PAMELA; 500 MUNITS/MIN PRN Reason: Protocol Sodium Chloride (Saline Flush) 10 ml FLUSH ASDIRECTED PRN PRN Reason: Keep Vein Open - Problem List & Annotations (1) 38 weeks gestation of SNOMED Code(s): 36827341 Code(s): Z3A.38 - 38 WEEKS GESTATION OF Status: Acute Current Visit: Yes (2) Gestational hypertension without significant proteinuria in third trimester SNOMED Code(s): 351746235 Code(s): O13.3 - GESTATIONAL HTN W/O SIGNIFICANT PROTEINURIA, THIRD TRIMESTER Status: Acute Current Visit: Yes (3) Double nuchal cord SNOMED Code(s): 853060708 Code(s): O69.1XX0 - LABOR AND DELIVERY COMP BY CORD AROUND NECK, W COMPRSN, UNSP Status: Acute Current Visit: Yes (4) First degree laceration of perineum during delivery, SNOMED Code(s): 533020275 Code(s): O70.0 - FIRST DEGREE PERINEAL LACERATION DURING DELIVERY Status: Acute Current Visit: Yes - Problem List Review Problem List Initiated/Reviewed/Updated: No - My Orders Last 24 Hours: My Active Orders 03/24/17 15:26 Sodium Chloride 0.9% [Saline Flush] 10 ml FLUSH ASDIRECTED PRN Resuscitation Status Routine 03/24/17 15:30 Lactated Ringers [Ringers, Lactated] 1,000 ml IV ASDIRECTED Lactated Ringers [Ringers, Lactated] 1,000 ml IV ASDIRECTED 03/24/17 15:31 Activity as Tolerated [RC] PFP Communication Order [RC] ASDIRECTED Communication Order [RC] ASDIRECTED Communication Order [RC] ASDIRECTED Communication Order [RC] ASDIRECTED Heart Tones [RC] ASDIRECTED Monitoring [RC] INTERMITTENT Notify Provider [RC] ASDIRECTED Notify Provider [RC] PFP Notify Provider [RC] PRN Peripheral IV Care [RC] . DIRECTED Vaginal Exam [RC] ASDIRECTED Vital Signs [RC] PER UNIT ROUTINE Electronic Heart Tones Ext w TOCO [WOMSER] Routine Electronic Heart Tones Internal [WOMSER] Per Unit Routine Peripheral IV Insertion Adult [OM.PC] Routine Peripheral IV Insertion Adult [OM.PC] Routine 03/24/17 15:35 Patient Status [ADT] Routine 03/24/17 17:45 Oxytocin/Lactated Ringers [Pitocin in LR 10 Units/1,000 ML] 10 unit in 1,000 ml IV TITRATE - Plan Plan:: Labor and delivery Brief History: [facility] . L/D Delivery Note. Patient Name: STACIA VILLA LATISHAedical Record Number: [id number]. Date of : Patient Status: Inpatient. [facility] [id number]. Date: 03/24/17 20:48Initialization Date: 03/24/17 20:48. L & D Note. - General Info. Date of Service: 03/24/17. Mother's Due Date: 04/03/17. - Delivery Note. Labor: Spontaneous, Augmented by ARM. Delivery Outcome: Livebirth (Male liveborn 2030 hrs Friday03/24/17 3850 g/7#4.3 oz APGARs 8/9 JUAN CARLOS Nuchal cored x2 tight). Infant Delivery Method: Spontaneous Vaginal Delivery-Single. Infant Delivery Mode: Spontaneous. Presentation : Left Occiput Anterior (JUAN CARLOS). Nuchal Cord: Present (2 tight cord cut and then delivery accomplished immediately after cutting cord. (Less than 5 seconds) ). Anesthesia Type: None. Episiotomy Type: None. Laceration: 1st Degree ( Midline sutured with 3-0 Monocryl times one). Suture type: Other. Suture size : 3-0. Placenta: Intact, Spontaneous (Spontaneous delivery at 2032 hrs. on Friday03/24/17 [place], central cord insertion. Examined and tacked discarded). Cord: 3 Vessels. Estimated Blood Loss: 250. Resuscitation Needed: No. [place] : Suctioned, Bulb Syringe, Stimulated, Warmed, [place] Used, Warmer Used. Provider: Ilir Rodrigues. Score 1 min: 8. Score 5 min : 9. - Patient Data. Vitals - Most Recent: Last Vital Signs. Temp 97.9 F 18:26. Pulse 81 03/24/17 18:26. Resp 16 03/24/17 18:26. BP 137/92 H 03/24/17 18:26. Pulse Ox 97 03/24/17 18:26. Weight - Most Recent: 166 lb 8 oz. Lab Results Last 24 Hours: Laboratory Results - last 24 hr. 03/24/1800Range/Units. 14:0716:1516:15. WBC 6.24 (3.98-10.04) K/mm3. RBC 3.98 (3.98-5.22) M/mm3. Hgb 13.3 (11.2-15.7) gm/L. Hct 37.5 (34.1-44.9) %. MCV 94.2 (79.4-94.8) fl. MCH 33.4 H (25.6-32.2) pg. MCHC 35.5 (32.2-35.5) g/dl. RDW Std Deviation 41.8 (36.4-46.3) fL. Plt Count 219 (182-369) K/ mm3. MPV 12.2 (9.4-12.3) fl. Neut % (Auto) 67.9 (34.0-71.1) %. Lymph % ( Auto) 22.0 (19.3-51.7) %. [place] % (Auto) 9.1 (4.7-12.5) %. Eos % (Auto) 0.5 L (0.7-5.8). Baso % (Auto) 0.2 (0.1-1.2) %. Neut # (Auto) 4.24 (1.56-6.13) K /mm3. Lymph # (Auto) 1.37 (1.18-3.74) K/mm3. [place] # (Auto) 0.57 H (0.24-0.36 ) K/mm3. Eos # (Auto) 0.03 L (0.04-0.36) K/mm3. Baso # (Auto) 0.01 (0.01- 0.08) K/mm3. PT (8.0-13.0) SECONDS. INR. APTT (22-36) SECONDS. Fibrinogen 478.1 H (200-400) mg/dL. Fibrin Degrad Products (<5) ug/mL. Sodium (136-145) mEq/L. Potassium (3.5-5.1) mEq/L. Chloride (98-107) mEq/ L. Carbon Dioxide (21-32) mEq/L. Anion Gap (5-15). BUN (7-18) mg/dL. Creatinine (0.55-1.02) mg/dL. Est Cr Clr Drug Dosing mL/min. Estimated GFR ( MDRD) (>60) mL/min. BUN/Creatinine Ratio (14-18). Glucose (74-106) mg/dL. Uric Acid (2.6-6.0) mg/dL. Calcium (8.5-10.1) mg/dL. Total Bilirubin (0.2- 1.0) mg/dL. AST (15-37) U/L. ALT (14-59) U/L. Alkaline Phosphatase (46-116 ) U/L. Total Protein (6.4-8.2) g/dl. Albumin (3.4-5.0) g/dl. Globulin gm/ dL. Albumin/Globulin Ratio (1-2). Urine Color Yellow (Yellow). Urine Appearance Clear (Clear). Urine pH 6.0 (5.0-8.0). Ur Specific [place] 1.010 ( 1.005-1.030). Urine Protein Negative (Negative). Urine Glucose (UA) Negative ( Negative). Urine Ketones Negative (Negative). Urine Occult Blood Negative ( Negative). Urine Nitrite Negative (Negative). Urine Bilirubin Negative ( Negative). Urine Urobilinogen 0.2 (0.2-1.0). Ur Leukocyte Esterase 1+ H ( Negative). Blood Type. Gel Antibody Screen. 03/24/1800Range/ Units. 16:1516:1516:15. WBC (3.98-10.04) K/mm3. RBC (3.98-5.22) M/mm3. Hgb (11.2-15.7) gm/L. Hct (34.1-44.9) %. MCV (79.4-94.8) fl. MCH (25.6- 32.2) pg. MCHC (32.2-35.5) g/dl. RDW Std Deviation (36.4-46.3) fL. Plt Count (182-369) K/mm3. MPV (9.4-12.3) fl. Neut % (Auto) (34.0-71.1) %. Lymph % (Auto) (19.3-51.7) %. [place] % (Auto) (4.7-12.5) %. Eos % (Auto) (0.7- 5.8). Baso % (Auto) (0.1-1.2) %. Neut # (Auto) (1.56-6.13) K/mm3. Lymph # ( Auto) (1.18-3.74) K/mm3. [place] # (Auto) (0.24-0.36) K/mm3. Eos # (Auto) (0.04 -0.36) K/mm3. Baso # (Auto) (0.01-0.08) K/mm3. PT 9.2 (8.0-13.0) SECONDS. INR 0.85. APTT 34 (22-36) SECONDS. Fibrinogen (200-400) mg/dL. Fibrin Degrad Products > 5 but < 20 ug/ml H (<5) ug/mL. Sodium 138 (136-145) mEq/L. Potassium 3.5 (3.5-5.1) mEq/L. Chloride 104 (98-107) mEq/L. Carbon Dioxide 19 L (21-32) mEq/L. Anion Gap 18.5 H (5-15). BUN 10 (7-18) mg/dL. Creatinine 0.8 (0.55-1.02) mg/dL. Est Cr Clr Drug Dosing 105.01 mL/min. Estimated GFR (MDRD) > 60 (>60) mL/min. BUN/Creatinine Ratio 12.5 L (14-18). Glucose 98 (74-106) mg/dL. Uric Acid 8.1 H (2.6-6.0) mg/dL. Calcium 9.5 (8.5 -10.1) mg/dL. Total Bilirubin 0.2 (0.2-1.0) mg/dL. AST 41 H (15-37) U/L. ALT 27 (14-59) U/L. Alkaline Phosphatase 159 H (46-116) U/L. Total Protein 7.0 (6.4-8.2) g/dl. Albumin 2.6 L (3.4-5.0) g/dl. Globulin 4.4 gm/dL. Albumin/Globulin Ratio 0.6 L (1-2). Urine Color (Yellow). Urine Appearance ( Clear). Urine pH (5.0-8.0). Ur Specific [place] (1.005-1.030). Urine Protein (Negative). Urine Glucose (UA) (Negative). Urine Ketones (Negative). Urine Occult Blood (Negative). Urine Nitrite (Negative). Urine Bilirubin (Negative) . Urine Urobilinogen (0.2-1.0). Ur Leukocyte Esterase (Negative). Blood Type O NEGATIVE. Gel Antibody Screen Negative. Med Orders - Current: Current Medications. Diphenhydramine HCl (Benadryl) 25 mg IVPUSH Q6H PRN. PRN Reason : Itching. Ephedrine Sulfate (Ephedrine Sulfate) 5 mg IVPUSH ASDIRECTED PRN. PRN Reason: HYPOTENTSION. Fentanyl (Sublimaze) 100 mcg EPIDUR Q3H PRN. PRN Reason: PAIN. Last Admin: 03/24/17 18:13 Dose: 100 mcg. Fentanyl/Bupivacaine HCl (Fentanyl/Bupivacaine/Ns 2 Mcg-0.125% 100 Ml) 100 ml EPIDUR ASDIRECTED PAMELA. Last Admin: 03/24/17 18:14 Dose: 100 ml. Lactated Ringer's (Ringers, Lactated) 1,000 mls @ 100 mls/hr IV ASDIRECTED PAMELA. Last Admin: 03/24/17 17: 49 Dose: 999 mls/hr. Lactated Ringer's (Ringers, Lactated) 1,000 mls @ 40 mls /hr IV ASDIRECTED PAMELA. Oxytocin/Lactated Ringer's (Pitocin In Lr 10 Units/1, 000 Ml) 10 unit in 1,000 mls @ 3,000 mls/hr IV TITRATE PAMELA; 500 MUNITS/MIN. PRN Reason: Protocol. Sodium Chloride (Saline Flush) 10 ml FLUSH ASDIRECTED PRN. PRN Reason: Keep Vein Open. - Problem List & Annotations. (1) 38 weeks gestation of . SNOMED Code(s): 71521737. Code(s): Z3A.38 - 38 WEEKS GESTATION OF Status: Acute Current Visit: Yes. (2) Gestational hypertension without significant proteinuria in third trimester. SNOMED Code(s) : 887109704. Code(s): O13.3 - GESTATIONAL HTN W/O SIGNIFICANT PROTEINURIA, THIRD TRIMESTER Status: Acute Current Visit: Yes. (3) Double nuchal cord. SNOMED Code(s): 739896044. Code(s): O69.1XX0 - LABOR AND DELIVERY COMP BY CORD AROUND NECK, W COMPRSN, UNSP Status: Acute Current Visit: Yes. (4) First degree laceration of perineum during delivery, . SNOMED Code(s): 540774605. Code(s): O70.0 - FIRST DEGREE PERINEAL LACERATION DURING DELIVERY Status: Acute Current Visit: Yes. - Problem List Review. Problem List Initiated/Reviewed/Updated: No. - My Orders. Last 24 Hours: My Active Orders. 03/24/17 15:26. Sodium Chloride 0.9% [Saline Flush] 10 ml FLUSH ASDIRECTED PRN. Resuscitation Status Routine. 03/24/17 15:30. Lactated Ringers [Ringers, Lactated] 1,000 ml IV ASDIRECTED. Lactated Ringers [Ringers, Lactated] 1,000 ml IV ASDIRECTED. 03/24/17 15:31. Activity as Tolerated [RC] PFP. Communication Order [RC] ASDIRECTED. Communication Order [RC] ASDIRECTED. Communication Order [RC] ASDIRECTED. Communication Order [RC] ASDIRECTED. Heart Tones [RC] ASDIRECTED. Monitoring [RC] INTERMITTENT. Notify Provider [RC] ASDIRECTED. Notify Provider [RC] PFP. Notify Provider [RC] PRN. Peripheral IV Care [RC] . DIRECTED. Vaginal Exam [ RC] ASDIRECTED. Vital Signs [RC] PER UNIT ROUTINE. Electronic Heart Tones Ext w TOCO [WOMSER] Routine. Electronic Heart Tones Internal [ WOMSER] Per Unit Routine. Peripheral IV Insertion Adult [OM.PC] Routine. Peripheral IV Insertion Adult [OM.PC] Routine. 03/24/17 15:35. Patient Status [ADT] Routine. 03/24/17 17:45. Oxytocin/Lactated Ringers [Pitocin in LR 10 Units/1,000 ML] 10 unit in 1,000 ml IV TITRATE. - Plan. Plan:: Labor and delivery - Discharge Data Discharge Date: 03/26/17 Discharge Disposition: Home, Self-Care 01 Condition: Good - Discharge Diagnosis/Problem(s) (1) 38 weeks gestation of SNOMED Code(s): 01871423 ICD Code: Z3A.38 - 38 WEEKS GESTATION OF Status: Acute Current Visit: Yes (2) Gestational hypertension without significant proteinuria in third trimester SNOMED Code(s): 187111353 ICD Code: O13.3 - GESTATIONAL HTN W/O SIGNIFICANT PROTEINURIA, THIRD TRIMESTER Status: Acute Current Visit: Yes (3) Double nuchal cord SNOMED Code(s): 091947055 ICD Code: O69.1XX0 - LABOR AND DELIVERY COMP BY CORD AROUND NECK, W COMPRSN, UNSP Status: Acute Current Visit: Yes Qualifiers: Fetus number: single or unspecified fetus Qualified Code(s): O69.1XX0 - Labor and delivery complicated by cord around neck, with compression, not applicable or unspecified (4) First degree laceration of perineum during delivery, SNOMED Code(s): 979164723 ICD Code: O70.0 - FIRST DEGREE PERINEAL LACERATION DURING DELIVERY Status: Acute Current Visit: Yes - Patient Summary/Data Operative Procedure(s) Performed: NA Complications: None Hospital Course: Uneventful - Patient Instructions Diet: Regular Diet as Tolerated Driving: Do Not Drive (x48 hrs) Showering/Bathing: May Shower, No Tub Bathing/Swimming Notify Provider of: Fever, Increased Pain, Swelling and Redness, Drainage, Nausea and/or Vomiting - Discharge Plan Home Medications: Home Meds Acetaminophen [Tylenol] 650 mg PO Q4H PRN tablet 03/26/17 [Rx] Benzocaine/Menthol [Dermoplast Pain Relief [place]] 1 applic TOP ASDIRECTED PRN canister 03/26/17 [Rx] Ibuprofen [IJD: Ibuprofen] 600 mg PO Q4H PRN tablet 03/26/17 [Rx] Lanolin [Lansinoh HPA] 1 applic TOP ASDIRECTED PRN tube 03/26/17 [Rx] Referrals: Ilir Rodrigues MD [Primary Care Provider] - (Make appointment for 2 weeks) - Discharge Summary/Plan Comment DC Time >30 min.: No - Patient Data Vitals - Most Recent: Last Vital Signs Temp 96.6 F 03/26/17 05:33 Pulse 72 03/26/17 05:33 Resp 18 03/26/17 05:33 BP 111/78 03/26/17 05:33 Pulse Ox 98 03/26/17 05:33 Weight - Most Recent: 166 lb 8 oz Lab Results - Last 24 hrs: Laboratory Results - last 24 hr 03/24/17 03/25/17 Range/Units 16:15 06:18 Blood Type O NEGATIVE O NEGATIVE Gel Antibody Screen Positive Positive Screen 1 ros/5 flds - neg RhIG Candidate? Yes Rhogam Indicated Yes, baby rh pos H Med Orders - Current: Current Medications Acetaminophen (Tylenol) 650 mg PO Q4H PRN PRN Reason: mild pain or fever Benzocaine/Menthol (Dermoplast Pain Relief [place]) 0 gm TOP ASDIRECTED PRN PRN Reason: Perineal Comfort Measure Last Admin: 03/24/17 23:29 Dose: 1 canister Bisacodyl (Dulcolax) 10 mg RECTAL BID PRN PRN Reason: Constipation Emollient Ointment (Lansinoh Hpa) 0 gm TOP ASDIRECTED PRN PRN Reason: Sore Nipples Ibuprofen (Motrin) 600 mg PO Q4H PRN PRN Reason: Mild pain or fever Last Admin: 03/26/17 03:00 Dose: 600 mg Wellbutrin Sr 150 Mg (*Pt Own Med*) 0 each PO BEDTIME [facility] Last Admin: 03/25/17 21:32 Dose: 150 each Witch [place] (Tucks) 1 pad TOP ASDIRECTED PRN PRN Reason: Hemorrhoid pain Last Admin: 03/24/17 23:29 Dose: 1 tub Discontinued Medications Diphenhydramine HCl (Benadryl) 25 mg IVPUSH Q6H PRN PRN Reason: Itching Ephedrine Sulfate (Ephedrine Sulfate) 5 mg IVPUSH ASDIRECTED PRN PRN Reason: HYPOTENTSION Fentanyl (Sublimaze) 100 mcg EPIDUR Q3H PRN PRN Reason: PAIN Last Admin: 03/24/17 18:13 Dose: 100 mcg Fentanyl/Bupivacaine HCl (Fentanyl/Bupivacaine/Ns 2 Mcg-0.125% 100 Ml) 100 ml EPIDUR ASDIRECTED [facility] Last Admin: 03/24/17 18:14 Dose: 100 ml Lactated Ringer's (Ringers, Lactated) 1,000 mls @ 100 mls/hr IV ASDIRECTED [facility] Last Admin: 03/24/17 17:49 Dose: 999 mls/hr Lactated Ringer's (Ringers, Lactated) 1,000 mls @ 40 mls/hr IV ASDIRECTED [facility] Oxytocin/Lactated Ringer's (Pitocin In Lr 10 Units/1,000 Ml) 10 unit in 1,000 mls @ 3,000 mls/hr IV TITRATE PAMELA; 500 MUNITS/MIN PRN Reason: Protocol Last Admin: 03/24/17 20:35 Dose: 500 munits/min, 3,000 mls/hr Sodium Chloride (Saline Flush) 10 ml FLUSH ASDIRECTED PRN PRN Reason: Keep Vein Open *Q Meaningful Use (DIS) - VTE *Q VTE Criteria *Q: - Stroke *Q Stroke Criteria *Q: - AMI *Q AMI Criteria *Q:
== END 2017-03-26 15:45 | disposition home or self-care (01) | DRG 560 ==
LOC: JD.WOMH 07:46 → JD.OB 15:01 → OBSVTOIN 20:30
PROVIDERS: ADMIT Obstetrics & Gynecology; ATTEND Obstetrics & Gynecology
PROC: 10E0XZZ Delivery of Products of Conception, External Approach (ICD-10-PCS; principal; 2017-03-24)
PROC: 0HQ9XZZ Repair Perineum Skin, External Approach (ICD-10-PCS; 2017-03-24)
PROC: 10907ZC Drainage of Amniotic Fluid, Therapeutic from Products of Conception, Via Natural or Artificial Opening (ICD-10-PCS; 2017-03-24)
PROC: 00HU33Z Insertion of Infusion Device into Spinal Canal, Percutaneous Approach (ICD-10-PCS; 2017-03-24)
PROC: 3E0R3BZ Introduction of Anesthetic Agent into Spinal Canal, Percutaneous Approach (ICD-10-PCS; 2017-03-24)
DX: O13.4 Gestational [pregnancy-induced] hypertension without significant proteinuria, complicating childbirth (principal); O70.0 First degree perineal laceration during delivery; O69.1XX0 Labor and delivery complicated by cord around neck, with compression, not applicable or unspecified; Z3A.39 39 weeks gestation of pregnancy; Z37.0 Single live birth
CPT/HCPCS: 01967; 36415; 51701; 59300; 59409; 80053; 81003; 84550; 85025; 85362; 85384; 85461; 85610; 85730; 86850; 86870; 86900; 86901; A9270-GY; J2590; J2790; J3010; J7120

== ENCOUNTER 2019-06-27 14:16 | Inpatient (IN) | payer BC ==
[~2019-06-27 14:16] MED LIST: Lidocaine 1.5% with EPINEPHrine 1:200,000 5 ML Amp ONE
[2019-06-27] MEDS ORDERED: Ampicillin 2 GM in Sodium Chloride 0.9% 100 ML IV ONE (16:02)
[2019-06-27] MEDS: Lactated Ringers 1,000 ML IV SCH ×3 (16:25→21:41)
[2019-06-27] MEDS ORDERED: Nalbuphine 10 MG/ML Syringe IVPUSH PRN (16:38)
[2019-06-27] MEDS ORDERED: Ondansetron 4 MG/2 ML SDV IVPUSH PRN (16:38)
[2019-06-27] MEDS ORDERED: Sodium Chloride 0.9% 10 ML Syringe FLUSH PRN (16:38)
[2019-06-27] MEDS ORDERED: Oxytocin/Lactated Ringers 10 UNIT/1,000 ML BAG IV SCH (16:45)
[2019-06-27] MEDS ORDERED: diphenhydrAMINE 50 MG/ML SDV IVPUSH PRN (17:53)
[2019-06-27] MEDS ORDERED: Bupivacaine/fentaNYL/NS 100 ML Bag EPIDUR PRN (17:53)
[2019-06-27] MEDS ORDERED: ePHEDrine 50 MG/ML SDV IVPUSH PRN (17:53)
[2019-06-27] MEDS ORDERED: fentaNYL 100 MCG/2 ML SDV EPIDUR PRN (17:53)
--- NOTE | 2019-06-27 17:53 | PCM.PREANE ---
Preanesthetic Assessment - Anesthesia/Transfusion/Family Hx Anesthesia History: Prior Anesthesia Without Reaction Transfusion History: No Prior Transfusion(s) - Review of Systems General: No Symptoms Pulmonary: No Symptoms Cardiovascular: No Symptoms 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: No Symptoms Neurological: No Symptoms Other: Reports: None - Physical Assessment Vital Signs: Last Vital Signs Temp 97.7 F 06/27/19 14:22 Pulse 87 06/27/19 14:22 Resp 16 06/27/19 14:22 BP 117/77 06/27/19 14:22 Pulse Ox Height: 1.68 m Weight: 85.275 kg ASA Class: 2 Mental Status: Alert & Oriented x3 Airway Class: Mallampati = 2 Dentition: Reports: Normal Dentition Thyro-Mental Finger Breadths: 3 Mouth Opening Finger Breadths: 3 ROM/Head Extension: Full Lungs: Clear to Auscultation Cardiovascular: Regular Rate, Regular Rhythm - Lab Values: Laboratory Last Values WBC 14.82 K/mm3 (3.98-10.04) H 06/27/19 16:52 RBC 3.81 M/mm3 (3.98-5.22) L 06/27/19 16:52 Hgb 12.4 gm/dl (11.2-15.7) 06/27/19 16:52 Hct 36.7 % (34.1-44.9) 06/27/19 16:52 MCV 96.3 fl (79.4-94.8) H 06/27/19 16:52 MCH 32.5 pg (25.6-32.2) H 06/27/19 16:52 MCHC 33.8 g/dl (32.2-35.5) 06/27/19 16:52 RDW Std Deviation 43.6 fL (36.4-46.3) 06/27/19 16:52 Plt Count 294 K/mm3 (182-369) 06/27/19 16:52 MPV 11.3 fl (9.4-12.3) 06/27/19 16:52 Neut % (Auto) 73.2 % (34.0-71.1) H 06/27/19 16:52 Lymph % (Auto) 18.1 % (19.3-51.7) L 06/27/19 16:52 [place] % (Auto) 7.3 % (4.7-12.5) 06/27/19 16:52 Eos % (Auto) 0.5 (0.7-5.8) L 06/27/19 16:52 Baso % (Auto) 0.1 % (0.1-1.2) 06/27/19 16:52 Neut # (Auto) 10.84 K/mm3 (1.56-6.13) H 06/27/19 16:52 Lymph # (Auto) 2.68 K/mm3 (1.18-3.74) 06/27/19 16:52 [place] # (Auto) 1.08 K/mm3 (0.24-0.36) H 06/27/19 16:52 Eos # (Auto) 0.08 K/mm3 (0.04-0.36) 06/27/19 16:52 Baso # (Auto) 0.02 K/mm3 (0.01-0.08) 06/27/19 16:52 - Allergies Allergies/Adverse Reactions: Allergies Allergy/AdvReac Type Severity Reaction Status Date / Time No Known Allergies Allergy Verified 03/24/17 15:25 - Acknowledgements Anesthesia Type Planned: Epidural Pt an Appropriate Candidate for the Planned Anesthesia: Yes Alternatives and Risks of Anesthesia Discussed w Pt/Guardian: Yes Pt/Guardian Understands and Agrees with Anesthesia Plan: Yes PreAnesthesia Questionnaire - Past Health History Medical/Surgical History: Denies Medical/Surgical History Cardiovascular History: Reports: Other (See Below) (possibly PIH, not taking any medications) 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 History: Reports: GERD Genitourinary History: Reports: Other (See Below) Other Genitourinary History: abnormal pap with biopsy 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: Psychiatric History: Reports: Anxiety, Depression - SUBSTANCE USE Smoking Status *Q: Never Smoker Recreational Drug Use History: No - HOME MEDS Home Medications: Home Meds Prenat 115/Iron Fum/Folic/Dss [ 19 Tablet] 1 tab PO DAILY 06/27/19 [ History] - CURRENT (IN HOUSE) MEDS Current Meds: Current Medications Lactated Ringer's (Ringers, Lactated) 1,000 mls @ 100 mls/hr IV ASDIRECTED PAMELA Last Admin: 06/27/19 16:25 Dose: 100 mls/hr Oxytocin/Lactated Ringer's (Pitocin In Lr 10 Units/1,000 Ml) 10 unit in 1,000 mls @ 500 mls/hr IV .CONTINUOUS PAMELA Ampicillin Sodium 1 gm/ Sodium (Chloride) 100 mls @ 200 mls/hr IV Q4H PAMELA Nalbuphine HCl (Nubain) 10 mg IVPUSH Q2H PRN PRN Reason: Pain Ondansetron HCl (Zofran) 4 mg IVPUSH Q4H PRN PRN Reason: Nausea/Vomiting Sodium Chloride (Saline Flush) 10 ml FLUSH ASDIRECTED PRN PRN Reason: Keep Vein Open Discontinued Medications Ampicillin Sodium 2 gm/ Sodium (Chloride) 100 mls @ 200 mls/hr IV ONETIME ONE Stop: 06/27/19 16:31 Last Admin: 06/27/19 16:25 Dose: 200 mls/hr
[2019-06-27] MEDS ORDERED: Ampicillin 1 GM in Sodium Chloride 0.9% 100 ML IV SCH (20:00)
--- NOTE | 2019-06-27 20:50 | PCM.LDHP ---
L&D History of Present Illness - General Date of Service: 06/27/19 Admit Problem/Dx: Patient Status Order with Admit Dx/Problem 06/27/19 14:22 Patient Status [ADT] Routine 06/27/19 16:38 Patient Status [ADT] Routine Admission Diagnosis/Problem Admission Diagnosis/Problem 06/27/19 20:45 06/27/19 20:49 Kati is a 32-year-old 1 para 0 white female who is admitted on 2019 at 39-6/7 weeks gestational age with an KATEY of 06/28/2019 for induction of labor. 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: Psychiatric History: Reports: Anxiety, Depression Social & Family History - Family History Family Medical History: Noncontributory - Tobacco Use Smoking Status *Q: Never Smoker - Caffeine Use Caffeine Use: Reports: None Other Caffeine Use: rarely - Recreational Drug Use Recreational Drug Use: No L&D Exam - Vital Signs Vital Signs: Last Vital Signs Temp 36.5 C 06/27/19 14:22 Pulse 87 06/27/19 14:22 Resp 16 06/27/19 14:22 BP 117/77 06/27/19 14:22 Pulse Ox Weight: 85.275 kg - Patient Data Lab Results Last 24 hrs: Laboratory Results - last 24 hr 06/27/19 Range/Units 16:52 WBC 14.82 H (3.98-10.04) K/mm3 RBC 3.81 L (3.98-5.22) M/mm3 Hgb 12.4 (11.2-15.7) gm/dl Hct 36.7 (34.1-44.9) % MCV 96.3 H (79.4-94.8) fl MCH 32.5 H (25.6-32.2) pg MCHC 33.8 (32.2-35.5) g/dl RDW Std Deviation 43.6 (36.4-46.3) fL Plt Count 294 (182-369) K/mm3 MPV 11.3 (9.4-12.3) fl Neut % (Auto) 73.2 H (34.0-71.1) % Lymph % (Auto) 18.1 L (19.3-51.7) % [place] % (Auto) 7.3 (4.7-12.5) % Eos % (Auto) 0.5 L (0.7-5.8) Baso % (Auto) 0.1 (0.1-1.2) % Neut # (Auto) 10.84 H (1.56-6.13) K/mm3 Lymph # (Auto) 2.68 (1.18-3.74) K/mm3 [place] # (Auto) 1.08 H (0.24-0.36) K/mm3 Eos # (Auto) 0.08 (0.04-0.36) K/mm3 Baso # (Auto) 0.02 (0.01-0.08) K/mm3 Manual Slide Review Abnormal smear Result Diagrams: 06/27/19 16:52 Orders Last 24hrs: Active Orders 24 hr Category Date Time Status Patient Status [ADT] Routine ADT 06/27/19 16:38 Active Activity as Tolerated [RC] PFP Care 06/27/19 16:38 Active Communication Order [RC] ASDIRECTED Care 06/27/19 16:38 Active Heart Tones [RC] ASDIRECTED Care 06/27/19 16:38 Active Non Stress Test [RC] PER UNIT ROUTINE Care 06/27/19 14:22 Active Notify Provider [RC] ASDIRECTED Care 06/27/19 17:53 Active Notify Provider [RC] PFP Care 06/27/19 16:38 Active Notify Provider [RC] PRN Care 06/27/19 16:38 Active Peripheral IV Care [RC] . DIRECTED Care 06/27/19 16:38 Active Pump Management, Intrathecal [RC] ASDIRECTED Care 06/27/19 16:39 Active Urinary Catheter Assessment [RC] ASDIRECTED Care 06/27/19 16:38 Active Vaginal Exam [RC] PRN Care 06/27/19 14:23 Active Vital Signs [RC] PER UNIT ROUTINE Care 06/27/19 14:22 Active Regular Diet [DIET] Diet 06/27/19 Lunch Active GROUP B STREP BY PCR [MOLEC] Stat Lab 06/27/19 14:40 Received RAPID PLASMA REAGIN,RPR [CHEM] Routine Lab 06/27/19 16:52 Received Ampicillin 1 gm Med 06/27/19 20:00 Active Sodium Chloride 0.9% [Normal Saline] 100 ml IV Q4H Bupivacaine/fentaNYL/NS [fentaNYL/Bupivacaine/NS 2 MCG- Med 06/27/19 17:53 Active 0.125% 100 ML] 100 ml EPIDUR ASDIRECTED PRN Lactated Ringers [Ringers, Lactated] 1,000 ml Med 06/27/19 16:17 Active IV ASDIRECTED Nalbuphine [Nubain] Med 06/27/19 16:38 Active 10 mg IVPUSH Q2H PRN Ondansetron [Zofran] Med 06/27/19 16:38 Active 4 mg IVPUSH Q4H PRN Oxytocin/Lactated Ringers [Pitocin in LR 10 Units/1,000 Med 06/27/19 16:45 Active ML] 10 unit in 1,000 ml IV .CONTINUOUS Sodium Chloride 0.9% [Saline Flush] Med 06/27/19 16:38 Active 10 ml FLUSH ASDIRECTED PRN diphenhydrAMINE [Benadryl] Med 06/27/19 17:53 Active 25 mg IVPUSH Q6H PRN ePHEDrine [ePHEDrine sulfate] Med 06/27/19 17:53 Active 5 mg IVPUSH ASDIRECTED PRN fentaNYL [Sublimaze] Med 06/27/19 17:53 Active 100 mcg EPIDUR Q3H PRN Electronic Heart Tones Ext w TOCO [WOMSER] Oth 06/27/19 16:38 Ordered Routine Electronic Heart Tones Internal [WOMSER] Per Unit Oth 06/27/19 16:38 Ordered Routine Peripheral IV Insertion Adult [OM.PC] Routine Oth 06/27/19 16:38 Ordered Resuscitation Status Routine Resus Stat 06/27/19 14:22 Ordered Medication Orders Diphenhydramine HCl (Benadryl) 25 mg IVPUSH Q6H PRN PRN Reason: pruritis Ephedrine Sulfate (Ephedrine Sulfate) 5 mg IVPUSH ASDIRECTED PRN PRN Reason: Hypotension Fentanyl (Sublimaze) 100 mcg EPIDUR Q3H PRN PRN Reason: Pain Fentanyl/Bupivacaine HCl (Fentanyl/Bupivacaine/Ns 2 Mcg-0.125% 100 Ml) 100 ml EPIDUR ASDIRECTED PRN PRN Reason: Pain Lactated Ringer's (Ringers, Lactated) 1,000 mls @ 100 mls/hr IV ASDIRECTED PAMELA Last Admin: 06/27/19 16:25 Dose: 100 mls/hr Oxytocin/Lactated Ringer's (Pitocin In Lr 10 Units/1,000 Ml) 10 unit in 1,000 mls @ 500 mls/hr IV .CONTINUOUS [facility] Ampicillin Sodium 1 gm/ Sodium (Chloride) 100 mls @ 200 mls/hr IV Q4H [facility] Last Admin: 06/27/19 19:58 Dose: 200 mls/hr Nalbuphine HCl (Nubain) 10 mg IVPUSH Q2H PRN PRN Reason: Pain Ondansetron HCl (Zofran) 4 mg IVPUSH Q4H PRN PRN Reason: Nausea/Vomiting Sodium Chloride (Saline Flush) 10 ml FLUSH ASDIRECTED PRN PRN Reason: Keep Vein Open
--- NOTE | 2019-06-27 21:00 | PCM.LDHP ---
L&D History of Present Illness - General Date of Service: 06/27/19 Admit Problem/Dx: Patient Status Order with Admit Dx/Problem 06/27/19 14:22 Patient Status [ADT] Routine 06/27/19 16:38 Patient Status [ADT] Routine Admission Diagnosis/Problem Admission Diagnosis/Problem 06/27/19 20:50 Bia is a 23-year-old 2 para 1001 white female who is evaluated in outpatient labor and delivery for contractions occurring over the last 24 hours. Her KATEY is 07/23/[address] place and at 36-2/7 weeks gestational age. She is known to change from 2 cm to 4-1/2 cm over the course of several hours of observation in labor and delivery. She is admitted for labor. Source of Information: Patient History Limitations: Reports: No Limitations - History of Present Illness Introduction:: Bia is a 23-year-old 2 para 1001 white female who is evaluated in outpatient labor and delivery for contractions occurring over the last 24 hours. Her KATEY is 07/23/[address] and at 36-2/7 weeks gestational age. She is known to change from 2 cm to 4-1/2 cm over the course of several hours of observation in labor and delivery. She is admitted for labor. 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 Menarche age 13. Cycles every 28-30 days. No control time conception. LMP was somewhat uncertain at this start date of 10/06/2018. Her is dated with an early ultrasound done on 12/02/2018 at 6-5/7 weeks gestational age and supported by 2 other ultrasounds on 02/03/2019 and 03/08/2019. Her previous ended on 2017 at 30-4/7 weeks gestational age with delivery of a 7 lbs. 14 oz. male infant via . She is no epidural in labor. Her labor was 5 hours long. She delivered at [facility]. history: Patient was first seen on 12/02/2018. She is seen number of times during the course of and had her relatively unremarkable course. Her weight gain was from 158.8 182 pounds for a 24 pound weight gain. Vital signs are stable throughout the . Fundal height growth was appropriate. She lives in [place], [place]. She had a RhoGAM shot on 05/02/2021. She has some anxiety concerns. She was given her T dap immunization on 05/03/2019. Lab testing and shows her blood to be O- with a negative and by screen. First hemoglobin is 13.7 g/dL and platelets were 386,000. She is rubella immune. RPR is nonreactive. Urine culture was negative. At today's B surface antigen and HIV assays were both negative. GC and chlamydia tests were negative. Her TSH on 03/08/2019 was 2.235 mg/L. This was normal. Her second trimester labs showed a hemoglobin of 12.1 g/dL. Platelets were 322,000. Diabetic screen test was normal at 117. End by screen on 05/03/2019 was negative and she received Rh immune globulin at that time. RPR at that time was also nonreactive. Group B strep screen was not performed. She has unknown group B strep status and is being treated as such. Allergies: None Medications: 1. vitamins 1 daily no prepped 2. Biotin tabs daily Past medical history: 1. 1. Past surgical history: Unremarkable Family history: Noncontributory Social history: Patient is . 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 She does not use any significant most alcohol drugs or tobacco. Her is named Ghassan. She lives in [place], [place] with her family. Review of systems: In general patient has no complaints other than mild contractions which have been persistent for approximately 24 hours.. Skin: Negative Lungs: No infectious symptoms or shortness of breath Cardiovascular: No chest pain or exercise intolerance Breasts: Changes associated with .. GI: Negative : body habitus changes Musculoskeletal: Negative Neurological: Negative In general the patient is well-developed, well-nourished, pleasant female of stated age in no acute distress. Last evaluation clinic on 05/19/2019 patient is weight was 182 pounds with pre weight 158.8 pounds. Height is 5 feet 6. Prepregnancy body mass index 24.7. Blood pressure at that time was 108/64 and heart rate was 144 BPM. Skin is warm dry without lesions. HEENT, neck and back within normal limits. Lungs are clear with good breath sounds in all lung saba. Cardiovascular exam shows regular and rhythm without murmurs. Abdomen is gravid with last fundal height in clinic appropriate for dates. Using a vertex presentation. Genital per digital as above. Extremities and neurological exam are grossly within normal limits. - Related Data Allergies/Adverse Reactions: Allergies Allergy/AdvReac Type Severity Reaction Status Date / Time No Known Allergies Allergy Verified 03/24/17 15:25 Home Medications: Home Meds Prenat 115/Iron Fum/Folic/Dss [ 19 Tablet] 1 tab PO DAILY 06/27/19 [ History] Past Medical History - Past Health History Medical/Surgical History: Denies Medical/Surgical History Cardiovascular History: Reports: Other (See Below) (possibly PIH, not taking any medications) 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 History: Reports: GERD Genitourinary History: Reports: Other (See Below) Other Genitourinary History: abnormal pap with biopsy 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: Psychiatric History: Reports: Anxiety, Depression Social & Family History - Family History Family Medical History: Noncontributory - Tobacco Use Smoking Status *Q: Never Smoker - Caffeine Use Caffeine Use: Reports: None Other Caffeine Use: rarely - Recreational Drug Use Recreational Drug Use: No H&P Review of Systems - Review of Systems: Review Of Systems: See Below L&D Exam - Exam Exam: See Below - Vital Signs Vital Signs: Last Vital Signs Temp 36.5 C 06/27/19 14:22 Pulse 87 06/27/19 14:22 Resp 16 06/27/19 14:22 BP 117/77 06/27/19 14:22 Pulse Ox Weight: 85.275 kg - Patient Data Lab Results Last 24 hrs: Laboratory Results - last 24 hr 06/27/19 Range/Units 16:52 WBC 14.82 H (3.98-10.04) K/mm3 RBC 3.81 L (3.98-5.22) M/mm3 Hgb 12.4 (11.2-15.7) gm/dl Hct 36.7 (34.1-44.9) % MCV 96.3 H (79.4-94.8) fl MCH 32.5 H (25.6-32.2) pg MCHC 33.8 (32.2-35.5) g/dl RDW Std Deviation 43.6 (36.4-46.3) fL Plt Count 294 (182-369) K/mm3 MPV 11.3 (9.4-12.3) fl Neut % (Auto) 73.2 H (34.0-71.1) % Lymph % (Auto) 18.1 L (19.3-51.7) % [place] % (Auto) 7.3 (4.7-12.5) % Eos % (Auto) 0.5 L (0.7-5.8) Baso % (Auto) 0.1 (0.1-1.2) % Neut # (Auto) 10.84 H (1.56-6.13) K/mm3 Lymph # (Auto) 2.68 (1.18-3.74) K/mm3 [place] # (Auto) 1.08 H (0.24-0.36) K/mm3 Eos # (Auto) 0.08 (0.04-0.36) K/mm3 Baso # (Auto) 0.02 (0.01-0.08) K/mm3 Manual Slide Review Abnormal smear Result Diagrams: 06/27/19 16:52 Problem List Initiated/Reviewed/Updated: Yes Orders Last 24hrs: Active Orders 24 hr Category Date Time Status Patient Status [ADT] Routine ADT 06/27/19 16:38 Active Activity as Tolerated [RC] PFP Care 06/27/19 16:38 Active Communication Order [RC] ASDIRECTED Care 06/27/19 16:38 Active Heart Tones [RC] ASDIRECTED Care 06/27/19 16:38 Active Non Stress Test [RC] PER UNIT ROUTINE Care 06/27/19 14:22 Active Notify Provider [RC] ASDIRECTED Care 06/27/19 17:53 Active Notify Provider [RC] PFP Care 06/27/19 16:38 Active Notify Provider [RC] PRN Care 06/27/19 16:38 Active Peripheral IV Care [RC] . DIRECTED Care 06/27/19 16:38 Active Pump Management, Intrathecal [RC] ASDIRECTED Care 06/27/19 16:39 Active Urinary Catheter Assessment [RC] ASDIRECTED Care 06/27/19 16:38 Active Vaginal Exam [RC] PRN Care 06/27/19 14:23 Active Vital Signs [RC] PER UNIT ROUTINE Care 06/27/19 14:22 Active Regular Diet [DIET] Diet 06/27/19 Lunch Active GROUP B STREP BY PCR [MOLEC] Stat Lab 06/27/19 14:40 Received RAPID PLASMA REAGIN,RPR [CHEM] Routine Lab 06/27/19 16:52 Received Ampicillin 1 gm Med 06/27/19 20:00 Active Sodium Chloride 0.9% [Normal Saline] 100 ml IV Q4H Bupivacaine/fentaNYL/NS [fentaNYL/Bupivacaine/NS 2 MCG- Med 06/27/19 17:53 Active 0.125% 100 ML] 100 ml EPIDUR ASDIRECTED PRN Lactated Ringers [Ringers, Lactated] 1,000 ml Med 06/27/19 16:17 Active IV ASDIRECTED Nalbuphine [Nubain] Med 06/27/19 16:38 Active 10 mg IVPUSH Q2H PRN Ondansetron [Zofran] Med 06/27/19 16:38 Active 4 mg IVPUSH Q4H PRN Oxytocin/Lactated Ringers [Pitocin in LR 10 Units/1,000 Med 06/27/19 16:45 Active ML] 10 unit in 1,000 ml IV .CONTINUOUS Sodium Chloride 0.9% [Saline Flush] Med 06/27/19 16:38 Active 10 ml FLUSH ASDIRECTED PRN diphenhydrAMINE [Benadryl] Med 06/27/19 17:53 Active 25 mg IVPUSH Q6H PRN ePHEDrine [ePHEDrine sulfate] Med 06/27/19 17:53 Active 5 mg IVPUSH ASDIRECTED PRN fentaNYL [Sublimaze] Med 06/27/19 17:53 Active 100 mcg EPIDUR Q3H PRN Electronic Heart Tones Ext w TOCO [WOMSER] Oth 06/27/19 16:38 Ordered Routine Electronic Heart Tones Internal [WOMSER] Per Unit Oth 06/27/19 16:38 Ordered Routine Peripheral IV Insertion Adult [OM.PC] Routine Oth 06/27/19 16:38 Ordered Resuscitation Status Routine Resus Stat 06/27/19 14:22 Ordered Medication Orders Diphenhydramine HCl (Benadryl) 25 mg IVPUSH Q6H PRN PRN Reason: pruritis Ephedrine Sulfate (Ephedrine Sulfate) 5 mg IVPUSH ASDIRECTED PRN PRN Reason: Hypotension Fentanyl (Sublimaze) 100 mcg EPIDUR Q3H PRN PRN Reason: Pain Fentanyl/Bupivacaine HCl (Fentanyl/Bupivacaine/Ns 2 Mcg-0.125% 100 Ml) 100 ml EPIDUR ASDIRECTED PRN PRN Reason: Pain Lactated Ringer's (Ringers, Lactated) 1,000 mls @ 100 mls/hr IV ASDIRECTED [facility] Last Admin: 06/27/19 16:25 Dose: 100 mls/hr Oxytocin/Lactated Ringer's (Pitocin In Lr 10 Units/1,000 Ml) 10 unit in 1,000 mls @ 500 mls/hr IV .CONTINUOUS [facility] Ampicillin Sodium 1 gm/ Sodium (Chloride) 100 mls @ 200 mls/hr IV Q4H [facility] Last Admin: 06/27/19 19:58 Dose: 200 mls/hr Nalbuphine HCl (Nubain) 10 mg IVPUSH Q2H PRN PRN Reason: Pain Ondansetron HCl (Zofran) 4 mg IVPUSH Q4H PRN PRN Reason: Nausea/Vomiting Sodium Chloride (Saline Flush) 10 ml FLUSH ASDIRECTED PRN PRN Reason: Keep Vein Open Assessment/Plan Comment:: 1. 36-2/7 week intrauterine , active labor, cervical change from 2-4+ centimeters 2. Group B strep status unknown she's been treated with ampicillin per group B strep prophylaxis protocol. 3. Patient plans to breast-feed 4. Patient is okay with epidural in labor. 5. Patient has received her T dap, her MMR indicates rubella immunity. She has had her hepatitis A vaccinations in 2013 and her meningococcal vaccination 2010. She has had Rh and midline on therapy at the end of second trimester with this . Plan: 1. Anticipate normal spontaneous vaginal delivery. 2. Epidural when necessary for patient desire. 3. Routine labor care. 4. RPR and CBC upon admission 5. Support breast-feeding decision.
--- NOTE | 2019-06-27 23:27 | PCM.SN.2 ---
- Free Text/Narrative Note: Delivery note: Bia is [id number] 2 now para 1102 white female who was admitted at 36-2/7 weeks gestational age with an KATEY of 07/23/2019 in active labor with progressive cervical dilation. An epidural was placed for labor and analgesia. She continued in labor and became complete at approximately 2245 hrs. on 2019. At 2305 hrs. she delivered a viable, mejia, male with Apgars of 8 and 9, weight of 3020 g (6 pounds 10.5 ounces), a length of 20.0 inches, in a right occiput anterior position over an intact perineum. Pitocin was given IV at 500 mL per hour to facilitate an increase in uterine tone and decrease risk of bleeding. The baby was placed on mom's abdomen. Nose and mouth were bulb suctioned and baby was dried with warm blanket. Cord was allowed to pulsate times approximately 2 minutes and then was clamped 2 and cut by the baby's father Ghassan. The umbilical cord had 3 vessels. Cord blood was obtained. The placenta delivered at 2308 hrs. in a Espinoza presentation, appeared intact and complete and was discarded per patient desire. The perineum and vagina were intact and no suturing was required. Patient plans to breast-feed. Estimated blood loss was 100 mL. Condition: Good.
[2019-06-27] MEDS ORDERED: Witch Hazel Medicated Pads 40/Jar TOP PRN (23:58)
[2019-06-27] MEDS ORDERED: Acetaminophen 325 MG Tab PO PRN (23:58)
[2019-06-27] MEDS ORDERED: Benzocaine/Menthol 20%-0.5% Spray 56 GM Canister TOP PRN (23:58)
[2019-06-27] MEDS ORDERED: Docusate Sodium 100 MG Cap PO PRN (23:58)
--- NOTE | 2019-06-28 05:01 | PCM.SN.2 ---
- Free Text/Narrative Note: note: Patient is doing well in the period. Minimal lochia, voiding well, ambulated without problems. Nursing without concerns. Patient is afebrile, vital signs are stable Abdomen is flat, soft, uterus is below the umbilicus and is firm and nontender. Legs are nontender. Assessment: recovery going well. Plan: Routine care. Patient be discharged home within the next 24-48 hours.
[2019-06-28] MEDS: Prenatal Multivitamin with Calcium/Folic Acid/Iron Tab PO SCH (07:59)
--- NOTE | 2019-06-28 08:07 | PCM48HPAN ---
Post Anesthesia Note - EVALUATION WITHIN 48HRS OF ANESTHETIC Vital Signs in Normal Range: Yes Patient Participated in Evaluation: Yes Respiratory Function Stable: Yes Airway Patent: Yes Cardiovascular Function Stable: Yes Hydration Status Stable: Yes Pain Control Satisfactory: Yes Nausea and Vomiting Control Satisfactory: Yes Mental Status Recovered: Yes Vital Signs: Last Vital Signs Temp 97.2 F 06/28/19 02:55 Pulse 80 06/28/19 02:55 Resp 12 06/28/19 02:55 BP 120/72 06/28/19 02:55 Pulse Ox 100 06/28/19 02:55 - COMMENTS/OBSERVATIONS Free Text/Narrative:: Patient is on her day 1. Stated understanding about possible backaches following epidural anesthesia. Mentions having some minor back soreness at this time. Denies any headache or lightheadedness at this time. Comfortable now. Ambulating, no difficulty urinating.
[2019-06-28] MEDS: Ibuprofen 600 MG Tab PO PRN (21:30)
--- NOTE | 2019-06-29 08:13 | PCM.SN.2 ---
- Free Text/Narrative Note: note: day #2 Patient is doing well in the period. Minimal lochia, voiding well, ambulated without problems. Nursing without concerns. Patient is afebrile, vital signs are stable Abdomen is flat, soft, uterus is below the umbilicus and is firm and nontender. Legs are nontender. Assessment: recovery going well. Plan: Routine care. Patient will be discharged home. Condition: Good
[2019-06-29] MEDS: Ibuprofen 600 MG Tab PO PRN (08:16)
[2019-06-29] MEDS: Prenatal Multivitamin with Calcium/Folic Acid/Iron Tab PO SCH (08:16)
--- NOTE | 2019-06-29 12:12 | PCM.DCSUM1 ---
Discharge Summary - Hospital Course Free Text/Narrative:: Bia is [id number] 2 now para 1102 white female who was admitted at 36-2/7 weeks gestational age with an KATEY of 07/23/2019 in active labor with progressive cervical dilation. An epidural was placed for labor and analgesia. She continued in labor and became complete at approximately 2245 hrs. on 2019. At 2305 hrs. she delivered a viable, mejia, male with Apgars of 8 and 9, weight of 3020 g (6 pounds 10.5 ounces), a length of 20.0 inches, in a right occiput anterior position over an intact perineum. Pitocin was given IV at 500 mL per hour to facilitate an increase in uterine tone and decrease risk of bleeding. The baby was placed on mom's abdomen. Nose and mouth were bulb suctioned and baby was dried with warm blanket. Cord was allowed to pulsate times approximately 2 minutes and then was clamped 2 and cut by the baby's father Ghassan. The umbilical cord had 3 vessels. Cord blood was obtained. The placenta delivered at 2308 hrs. in a Espinoza presentation, appeared intact and complete and was discarded per patient desire. The perineum and vagina were intact and no suturing was required. Patient plans to breast-feed/pump. Estimated blood loss was 100 mL. patient is well. She is ambulating well, has minimal lochia, voiding well. She is pumping with bottlefeeding. This is going reasonably well. She is desiring discharge home. Condition: Good. Diagnosis: Stroke: No - Discharge Data Discharge Date: 06/29/19 Discharge Disposition: Home, Self-Care 01 Condition: Good - Referral to Home Health Primary Care Physician: Ilir Rodrigues MD - Patient Instructions Diet: Regular Diet as Tolerated (Nursing diet with increase calories and calcium as recommended) Activity: As Tolerated (No intercourse or tampons until bleeding resolves) Driving: May Drive Today Showering/Bathing: May Shower (May take a bath) Notify Provider of: Fever, Increased Pain, Swelling and Redness, Nausea and/or Vomiting - Discharge Plan Home Medications: Home Meds Prenat 115/Iron Fum/Folic/Dss [ 19 Tablet] 1 tab PO DAILY 06/27/19 [ History] Acetaminophen [Tylenol] 650 mg PO Q4H PRN tablet 06/29/19 [Rx] Ibuprofen [Motrin] 600 mg PO Q4H PRN tablet 06/29/19 [Rx] Referrals: Brooks Galindo MD [Physician] - (Please have patient call for a telehealth appointment to be done in 2 weeks.) - Discharge Summary/Plan Comment DC Time >30 min.: No Discharge Summary/Plan Comment: Discharge instructions: 1. Discharge home 2. Diet, activity and follow-up discussed with patient. Recommend nursing diet with increased calories and calcium. 3. Precautions given concern increased pain, bleeding, temperature, signs/ symptoms of DVT/PE. 4. Medications per home medication was printed, discussed with and given to the patient. 5. Please have the patient call for a telemedicine appointment for 2 weeks from time of discharge. Diagnosis: 36-2/7 week -delivered Condition: Good - Patient Data Vitals - Most Recent: Last Vital Signs Temp 36.7 C 06/29/19 08:09 Pulse 71 06/29/19 08:09 Resp 12 06/29/19 08:09 BP 112/75 06/29/19 08:09 Pulse Ox 98 06/29/19 08:09 Weight - Most Recent: 85.275 kg I&O - Last 24 hours: Intake & Output 06/28/19 06/29/19 06/29/19 22:59 06:59 14:59 Intake Total 120 Balance 120 Lab Results - Last 24 hrs: Laboratory Results - last 24 hr 06/27/19 Range/Units 16:52 RPR Non-reactive (NONREACTIVE) Med Orders - Current: Current Medications Acetaminophen (Tylenol) 650 mg PO Q4H PRN PRN Reason: mild pain or fever Last Admin: 06/28/19 07:59 Dose: 650 mg Benzocaine/Menthol (Dermoplast Pain Relief Currie) 0 gm TOP ASDIRECTED PRN PRN Reason: Perineal Comfort Measure Last Admin: 06/28/19 00:55 Dose: 1 applic Docusate Sodium (Colace) 100 mg PO BID PRN PRN Reason: Constipation Ibuprofen (Motrin) 600 mg PO Q4H PRN PRN Reason: Mild pain or fever Last Admin: 06/29/19 08:16 Dose: 600 mg Prenat Multivit/[facility]/Iron/Folic Ac ( Plus Iron) 1 each PO DAILY [facility] Last Admin: 06/29/19 08:16 Dose: 1 each Tre Van (Raimundockyesenia) 1 pad TOP ASDIRECTED PRN PRN Reason: Perineal Comfort Measure Last Admin: 06/28/19 00:55 Dose: 1 pad Discontinued Medications Diphenhydramine HCl (Benadryl) 25 mg IVPUSH Q6H PRN PRN Reason: pruritis Ephedrine Sulfate (Ephedrine Sulfate) 5 mg IVPUSH ASDIRECTED PRN PRN Reason: Hypotension Fentanyl (Sublimaze) 100 mcg EPIDUR Q3H PRN PRN Reason: Pain Last Admin: 06/27/19 21:30 Dose: 100 mcg Fentanyl/Bupivacaine HCl (Fentanyl/Bupivacaine/Ns 2 Mcg-0.125% 100 Ml) 100 ml EPIDUR ASDIRECTED PRN PRN Reason: Pain Last Admin: 06/27/19 21:31 Dose: 100 ml Ampicillin Sodium 2 gm/ Sodium (Chloride) 100 mls @ 200 mls/hr IV ONETIME ONE Stop: 06/27/19 16:31 Last Admin: 06/27/19 16:25 Dose: 200 mls/hr Lactated Ringer's (Ringers, Lactated) 1,000 mls @ 100 mls/hr IV ASDIRECTED PAMELA Last Admin: 06/27/19 21:41 Dose: 100 mls/hr Oxytocin/Lactated Ringer's (Pitocin In Lr 10 Units/1,000 Ml) 10 unit in 1,000 mls @ 500 mls/hr IV .CONTINUOUS [facility] Last Admin: 06/27/19 23:55 Dose: 500 mls/hr Ampicillin Sodium 1 gm/ Sodium (Chloride) 100 mls @ 200 mls/hr IV Q4H [facility] Last Admin: 06/27/19 19:58 Dose: 200 mls/hr Lidocaine/Epinephrine (Xylocaine-Mpf 1.5% W/Epinephrine 1:200,000) 5 ml .ROUTE .STK-MED ONE Stop: 06/27/19 00:01 Nalbuphine HCl (Nubain) 10 mg IVPUSH Q2H PRN PRN Reason: Pain Ondansetron HCl (Zofran) 4 mg IVPUSH Q4H PRN PRN Reason: Nausea/Vomiting Sodium Chloride (Saline Flush) 10 ml FLUSH ASDIRECTED PRN PRN Reason: Keep Vein Open
== END 2019-06-29 12:48 | disposition home or self-care (01) | DRG 560 ==
LOC: JD.OBCHECK 14:16 → JD.OB 14:17 → JD.OBCHECK 16:37 → JD.OB 16:38 → OBSVTOIN 23:05 → JD.OB 23:06
PROVIDERS: ADMIT Obstetrics & Gynecology; ATTEND Obstetrics & Gynecology
PROC: 3E0334Z Introduction of Serum, Toxoid and Vaccine into Peripheral Vein, Percutaneous Approach (ICD-10-PCS; principal; 2019-06-27)
PROC: 10E0XZZ Delivery of Products of Conception, External Approach (ICD-10-PCS; 2019-06-27)
PROC: 3E0R3BZ Introduction of Anesthetic Agent into Spinal Canal, Percutaneous Approach (ICD-10-PCS; 2019-06-27)
DX: O26.893 Other specified pregnancy related conditions, third trimester (principal); Z67.41 Type O blood, Rh negative; Z3A.36 36 weeks gestation of pregnancy; Z37.0 Single live birth
CPT/HCPCS: 01967; 36415; 51702; 59025; 59409; 85025; 85461; 86592; 86850; 86870; 86900; 86901; 87653; A9270-GY; J0290; J2590; J2790; J3010; J7050; J7120

== ENCOUNTER 2021-11-05 12:05 | Observation (INO) | payer OTHER ==
[2021-11-05] MEDS ORDERED: NIFEdipine 10 MG Cap PO ONE (13:49)
[2021-11-05] MEDS ORDERED: Lactated Ringers 1,000 ML IV ONE (13:49)
[2021-11-05] MEDS ORDERED: Phenazopyridine 95 MG Tab PO PRN (13:49)
[2021-11-05] MEDS ORDERED: Sodium Chloride 0.9% 1,000 ML IV ONE (14:17)
[2021-11-05] MEDS: cefTRIAXone 1 GM in Sodium Chloride 0.9% 100 ML IV SCH (14:55)
[2021-11-05] MEDS: Lactated Ringers 1,000 ML IV SCH ×2 (15:59→22:23)
[2021-11-05] MEDS: NIFEdipine 10 MG Cap PO SCH (20:38)
[2021-11-06] MEDS: NIFEdipine 10 MG Cap PO SCH ×2 (02:22→09:33)
[2021-11-06] MEDS ORDERED: Acetaminophen 325 MG Tab PO ONE (04:24)
[2021-11-06] MEDS: Lactated Ringers 1,000 ML IV SCH (05:05)
[2021-11-06] MEDS: cefTRIAXone 1 GM in Sodium Chloride 0.9% 100 ML IV SCH (12:16)
== END 2021-11-06 13:00 | disposition home or self-care (01) ==
LOC: JD.OBCHECK 12:05 → JD.OB 12:06 → JD.OBCHECK 15:17 → JD.OB 11-06 08:58
PROVIDERS: ADMIT Obstetrics & Gynecology; ATTEND Obstetrics & Gynecology
DX: O23.43 Unspecified infection of urinary tract in pregnancy, third trimester (principal); O47.03 False labor before 37 completed weeks of gestation, third trimester; O32.1XX0 Maternal care for breech presentation, not applicable or unspecified; Z3A.36 36 weeks gestation of pregnancy; Z79.899 Other long term (current) drug therapy; Z98.890 Other specified postprocedural states
CPT/HCPCS: 36415; 59020; 81001; 85025; 87086; 87653; 96365; 96376; A9270; G0378; J0696; J7030; J7120

== ENCOUNTER 2021-11-12 21:45 | Inpatient (IN) | payer OTHER ==
[2021-11-12] MEDS ORDERED: Terbutaline 1 MG/ML SDV SUBCUT ONE (23:19)
[2021-11-13] MEDS ORDERED: Sodium Chloride 0.9% 10 ML Syringe FLUSH PRN
[2021-11-13] MEDS ORDERED: Ondansetron 4 MG/2 ML SDV IVPUSH PRN
[2021-11-13] MEDS ORDERED: Nalbuphine HCl 10 MG/ 1ML Amp IVPUSH PRN
[2021-11-13] MEDS ORDERED: Oxytocin/Lactated Ringers 10 UNIT/1,000 ML BAG IV SCH
[2021-11-13] MEDS ORDERED: Ropivacaine 0.2% PF 2 MG/ML 20 ML SDV ONE
[2021-11-13] MEDS ORDERED: diphenhydrAMINE 50 MG/ML SDV IVPUSH PRN ×2 (02:20→07:32)
[2021-11-13] MEDS ORDERED: ePHEDrine 50 MG/ML SDV IVPUSH PRN ×2 (02:20→07:29)
[2021-11-13] MEDS ORDERED: Bupivacaine/fentaNYL/NS 100 ML Bag EPIDUR PRN ×2 (02:20→07:31)
[2021-11-13] MEDS: Lactated Ringers 1,000 ML IV SCH ×2 (02:39→02:41)
[2021-11-13] MEDS ORDERED: fentaNYL 100 MCG/2 ML SDV ONE (02:48)
[2021-11-13] MEDS: fentaNYL 100 MCG/2 ML SDV EPIDUR PRN ×2 (02:49→02:53)
[2021-11-13] MEDS ORDERED: fentaNYL 100 MCG/2 ML SDV EPIDUR PRN (07:32)
[2021-11-13] MEDS ORDERED: Acetaminophen 325 MG Tab PO PRN (08:44)
[2021-11-13] MEDS ORDERED: Ibuprofen 600 MG Tab PO PRN (08:44)
[2021-11-13] MEDS ORDERED: Witch Hazel Medicated Pads 40/Jar TOP PRN (08:44)
[2021-11-13] MEDS ORDERED: Benzocaine/Menthol 20%-0.5% Spray 78 GM Cannister TOP PRN (08:44)
[2021-11-13] MEDS ORDERED: Docusate Sodium 100 MG Cap PO PRN (08:44)
[2021-11-13] MEDS ORDERED: Sodium Chloride 0.9% 10 ML Syringe FLUSH SCH (09:00)
[2021-11-13] MEDS: Prenatal Multivitamin with Calcium/Folic Acid/Iron Tab PO SCH (09:19)
[2021-11-14] MEDS: Prenatal Multivitamin with Calcium/Folic Acid/Iron Tab PO SCH (14:21)
== END 2021-11-14 16:24 | disposition home or self-care (01) | DRG 807 ==
LOC: JD.OBCHECK 21:45 → JD.OB 21:48 → JD.OBCHECK 23:59 → JD.OB 11-13 → OBSVTOIN 11-13 04:07 → JD.OB 11-13 04:08
PROVIDERS: ADMIT Obstetrics & Gynecology; ATTEND Obstetrics & Gynecology
PROC: 10E0XZZ Delivery of Products of Conception, External Approach (ICD-10-PCS; principal; 2021-11-13)
PROC: 10907ZC Drainage of Amniotic Fluid, Therapeutic from Products of Conception, Via Natural or Artificial Opening (ICD-10-PCS; 2021-11-13)
PROC: 3E033VJ Introduction of Other Hormone into Peripheral Vein, Percutaneous Approach (ICD-10-PCS; 2021-11-13)
PROC: 3E0R3BZ Introduction of Anesthetic Agent into Spinal Canal, Percutaneous Approach (ICD-10-PCS; 2021-11-13)
PROC: 00HU33Z Insertion of Infusion Device into Spinal Canal, Percutaneous Approach (ICD-10-PCS; 2021-11-13)
DX: O32.8XX0 Maternal care for other malpresentation of fetus, not applicable or unspecified (principal); Z37.0 Single live birth; O99.62 Diseases of the digestive system complicating childbirth; K21.9 Gastro-esophageal reflux disease without esophagitis; Z3A.37 37 weeks gestation of pregnancy
CPT/HCPCS: 01967; 36415; 51701; 59020; 59025; 59409; 59412; 85025; 86592; 86850; 86870; 86900; 86901; A9270-GY; J2590; J2795; J3010; J3105; J7120